=== PATIENT | female | born 1950 | race Caucasian/White ===

== ENCOUNTER 2020-08-26 11:50 | Emergency (ER) | payer MEDICARE, OTHER ==
[~2020-08-26] VITALS: Ht 160 cm; Wt 81.7 kg
[2020-08-26 12:19] LABS: BASOPHILS ABSOLUTE AUTO 0.09 K/mm3 (0.00-0.23); BASOPHILS PERCENT AUTO 0 % (0-2); EOSINOPHILS PERCENT AUTO 0 % (0-6); Hematocrit 41.4 % (33.0-51.0); Hemoglobin 14.2 g/dL (11.5-16.0); IMMATURE GRAN ABSOLUTE AUTO 0.34 K/mm3 (0.00-0.10); IMMATURE GRAN PERCENT AUTO 1 % (0-1); LYMPHOCYTES PERCENT AUTO 3 % (21-46); MONOCYTES PERCENT AUTO 8 % (4-13); Mean Corpuscular HGB 34.1 pg (26.0-34.0); Mean Corpuscular HGB Conc 34.3 g/dL (31.5-36.5); Mean Corpuscular Volume 99 fL (80-100); Mean Platelet Volume 9.5 fL (9.1-12.4); NEUTROPHILS ABSOLUTE AUTO 21.02 K/mm3 (1.96-9.15); NEUTROPHILS PERCENT AUTO 87 % (41-73); Platelet Count 160 K/mm3 (150-400); RDW Coefficient Variation 15.2 % (11.7-14.2); RDW Standard Deviation 55.6 fL (35.1-46.3); Red Blood Cell Count 4.17 M/mm3 (3.80-5.20); White Blood Cell Count 24.05 K/mm3 (4.00-11.30)
[2020-08-26 12:47] LABS: Alanine Aminotransfer (ALT/SGP 31 U/L (12-78); Albumin, Blood 3.2 g/dL (3.4-5.0); Albumin/Globulin Ratio 1.1 (0.8-1.8); Alk Phos 104 U/L (50-136); Anion Gap 5 mmol/L (6-16); Aspartate Aminotrans (AST/SGOT 50 U/L (12-37); Bilirubin, Total 4.4 mg/dL (0.1-1.0); Blood Urea Nitrogen 11 mg/dL (8-24); Bun/Creatinine Ratio 11.5 (12.0-20.0); CO2, Blood 32 mmol/L (21-32); Calcium, Blood 9.5 mg/dL (8.5-10.1); Chloride, Blood 102 mmol/L (98-108); Creatinine, Blood 0.96 mg/dL (0.40-1.00); Globulin, Blood 2.9 g/dL (2.2-4.0); Glomerular Filtration Rate >60 (60-); Glucose, Blood 115 mg/dL (70-99); Potassium, Blood 3.3 mmol/L (3.5-5.5); Sodium, Blood 139 mmol/L (136-145); Total Protein, Blood 6.1 g/dL (6.4-8.2)
[2020-08-26] MEDS ORDERED: Flagyl500 MG PO (18:39)
[2020-08-26] MEDS ORDERED: ONDA4ODT MM (18:39)
[2020-08-26] MEDS ORDERED: Cipro500 MG PO (18:39)
== END 2020-08-26 18:55 | disposition home or self-care (01) ==
LOC: ER 11:50
PROVIDERS: Emergency Medicine
DX: K52.9 Noninfective gastroenteritis and colitis, unspecified (principal); Z88.0 Allergy status to penicillin; Z88.6 Allergy status to analgesic agent
CPT/HCPCS: 74176; 80053; 83605; 83690; 83735; 84145; 85025; 96374; 96375; 99284-25; A9270; J1170; J2405; J7120

== ENCOUNTER 2024-10-30 14:45 | Inpatient (IN) | payer MEDICARE, OTHER ==
[~2024-10-30] VITALS: Ht 162.6 cm; Wt 84.9 kg
[2024-10-30] VITALS (21 sets, daily range): BP systolic 78–106; BP diastolic 44–68
[~2024-10-30 14:45] MED LIST: Cipro500 MG PO; Flagyl500 MG PO; ONDA4ODT MM
[2024-10-30] MEDS ORDERED: NS 1,000 ML IV SCH ×4 (14:55→16:50)
[2024-10-30 14:56] LABS: Calcium, Ionized (POC) 1.20 mmol/L (1.10-1.46); Chloride (POC) 110 mmol/L (98-108); Creatinine (POC) 1.3 mg/dL (0.6-1.0); Glucose (ISTAT POC) 83 mg/dL (70-99); Hematocrit (POC) 32.0 % (36.0-46.0); Hemoglobin (POC) 10.9 g/dL (12.0-16.0); Potassium (POC) 5.2 mmol/L (3.5-5.5); Sodium (POC) 139 mmol/L (135-148); Total CO2 (POC) 21 mmol/L (21-32)
[2024-10-30 15:01] LABS: pH Blood Venous 7.53 (7.34-7.37)
[2024-10-30 15:07] LABS: BASOPHILS ABSOLUTE AUTO 0.04 K/mm3 (0.00-0.23); BASOPHILS PERCENT AUTO 1 % (0-2); EOSINOPHILS ABSOLUTE AUTO 0.06 K/mm3 (0.00-0.68); EOSINOPHILS PERCENT AUTO 1 % (0-6); Hematocrit 31.7 % (33.0-51.0); Hemoglobin 10.7 g/dL (11.5-16.0); IMMATURE GRAN ABSOLUTE AUTO 0.02 K/mm3 (0.00-0.10); IMMATURE GRAN PERCENT AUTO 0 % (0-1); LYMPHOCYTES ABSOLUTE AUTO 2.93 K/mm3 (0.84-5.20); LYMPHOCYTES PERCENT AUTO 59 % (21-46); MONOCYTES ABSOLUTE AUTO 0.34 K/mm3 (0.16-1.47); MONOCYTES PERCENT AUTO 7 % (4-13); Mean Corpuscular HGB Conc 33.8 g/dL (31.5-36.5); Mean Corpuscular Volume 104 fL (80-100); NEUTROPHILS ABSOLUTE AUTO 1.59 K/mm3 (1.96-9.15); NEUTROPHILS PERCENT AUTO 32 % (41-73); NRBC ABSOLUTE 0.02 K/mm3 (0.00-0.02); NRBC Auto 0.4 /100 WBC (0.0-0.2); Platelet Count 157 K/mm3 (150-400); RDW Coefficient Variation 18.1 % (11.7-14.2); RDW Standard Deviation 68.2 fL (35.1-46.3)
[2024-10-30] MEDS ORDERED: Rocuronium Bromide 10 MG/ML 5ML Injection IV ONE ×3 (15:11→19:23)
[2024-10-30] MEDS ORDERED: Etomidate 2MG / ML 10ML Vial IV ONE (15:11)
[2024-10-30 15:40] LABS: Alanine Aminotransfer (ALT/SGP 28.0 U/L (12-78); Albumin, Blood 2.6 g/dL (3.4-5.0); Albumin/Globulin Ratio 0.9 (0.8-1.8); Anion Gap 10.0 mmol/L (3-11); Aspartate Aminotrans (AST/SGOT 55.0 U/L (12-37); Bilirubin, Total 2.0 mg/dL (0.1-1.0); Blood Urea Nitrogen 18.0 mg/dL (8-24); CO2, Blood 22.0 mmol/L (21-32); Calcium, Blood 9.3 mg/dL (8.5-10.1); Chloride, Blood 112.0 mmol/L (98-108); Creatinine, Blood 1.17 mg/dL (0.40-1.00); Globulin, Blood 3.0 g/dL (2.2-4.0); Glucose, Blood 84.0 mg/dL (70-99); Potassium, Blood 5.4 mmol/L (3.5-5.5); Sodium, Blood 139.0 mmol/L (136-145); Total Protein, Blood 5.6 g/dL (6.4-8.2)
[2024-10-30] MEDS ORDERED: PLAVIX75 MG PO (16:57)
[2024-10-30] MEDS ORDERED: ATOR40TA PO (16:57)
[2024-10-30] MEDS ORDERED: ECONAZOLE NITRA30 GM TOP (16:58)
[2024-10-30] MEDS ORDERED: LASIX20 M2 PO (16:58)
[2024-10-30] MEDS ORDERED: GABA300 PO (17:01)
[2024-10-30] MEDS ORDERED: Norco 5-325 Ta1 EACH PO (17:01)
[2024-10-30] MEDS ORDERED: METO50ER PO (17:02)
[2024-10-30] MEDS ORDERED: ROPI.25 PO (17:03)
[2024-10-30] MEDS ORDERED: Revatio20 MG PO (17:03)
[2024-10-30] MEDS ORDERED: TRELEGY ELLIPT1 EACH INH (17:04)
[2024-10-30] MEDS ORDERED: ALDACTONE100 M1 PO (17:04)
[2024-10-30] MEDS ORDERED: TRAM50 PO (17:04)
[2024-10-30] MEDS ORDERED: KOURZEQ5 GM DT (17:05)
[2024-10-30] MEDS ORDERED: XCELLENT A 33000 MCG PO (17:05)
[2024-10-30] MEDS ORDERED: VITAMIN D310 MC4 PO (17:06)
[2024-10-30 18:06] LABS: pH Blood Venous 7.42 (7.34-7.37)
[2024-10-30] MEDS ORDERED: Propofol 10mg/ml 20 ml Vial (Procedural) IV ONE (18:20)
[2024-10-30] MEDS ORDERED: Ketamine HCl 100 MG / ML 5ML Vial XX ONE (19:23)
[2024-10-30] MEDS ORDERED: Phenylephrine HCl 100 MCG/ML-NS 10MLSYR (1MG/10ML) IV ONE (19:23)
[2024-10-30 19:25] LABS: Prothrombin Time Results 14.4 Sec (9.7-11.5)
[2024-10-30] MEDS ORDERED: Albuterol 2.5 MG/3 ML VIAL INH PRN (20:50)
--- NOTE | 2024-10-30 21:25 | NUR ---
ASSUMED CARE IKER PRINGLE FROM ED TRABNSFERED PATIENT TO ICE @2207. PATIENT INTUBATED 7.5 @23CM. PATEINT HAS RIGHT CENTRAL LINE WITH LEVO RUNNING @14MCG. HAS 2 RIGHT FOREARM PERIPHERALIV'S AND LEFT HAND PERIPHERAL AND LEFT FOREARM PERIPHERAL. AT BEDSIDE ALEX.
[2024-10-30 22:34] LABS: Source, Urine Foley catheter
[2024-10-30 22:38] LABS: Glucose Qualitative, Urine Neg (Neg); Ketones, Urine 1+ (Neg); Leukocyte Esterase, Urine 1+ (Neg); Protein, Urine 4+ (Neg); Specific Gravity, Urine 1.025 (1.003-1.022); Urobilinogen, Urine 1+ (Normal)
[2024-10-30 22:47] LABS: Bilirubin, Urine 1+ (Neg); Color, Urine Amber (P-Yellow)
[2024-10-30] MEDS ORDERED: Ipratropium/Albuterol SulF 2.5-0.5MG/3 ML Amp INH PRN (23:40)
[2024-10-30] MEDS ORDERED: CefTRIAXone Sodium 1,000 MG in NS 100 ML IV SCH (23:50)
[2024-10-31] VITALS (105 sets, daily range): BP systolic 67–147; BP diastolic 45–75
[2024-10-31] MEDS ORDERED: Hydrogen Peroxide 1.5 % Solution MT SCH
[2024-10-31] MEDS ORDERED: Vasopressin 20 UNITS in NS 100 ML IV SCH (00:10)
[2024-10-31] MEDS ORDERED: FentaNYL Citrate 50 MCG/ML 2 ML Injection IV PRN (00:15)
--- NOTE | 2024-10-31 00:39 | NUR ---
UPDATE PLACED A RECTAL TUBE DUE TO LARGE AMOUNT OF WILSON LIQUID STOOL.
[2024-10-31] MEDS ORDERED: Midazolam HCL 50 MG in NS 40 ML IV PRN (02:50)
[2024-10-31 05:13] LABS: BASOPHILS ABSOLUTE AUTO 0.03 K/mm3 (0.00-0.23); BASOPHILS PERCENT AUTO 0 % (0-2); EOSINOPHILS ABSOLUTE AUTO 0.25 K/mm3 (0.00-0.68); EOSINOPHILS PERCENT AUTO 3 % (0-6); Hematocrit 33.1 % (33.0-51.0); Hemoglobin 11.5 g/dL (11.5-16.0); IMMATURE GRAN ABSOLUTE AUTO 0.04 K/mm3 (0.00-0.10); IMMATURE GRAN PERCENT AUTO 0 % (0-1); LYMPHOCYTES ABSOLUTE AUTO 0.84 K/mm3 (0.84-5.20); LYMPHOCYTES PERCENT AUTO 9 % (21-46); MONOCYTES ABSOLUTE AUTO 1.46 K/mm3 (0.16-1.47); MONOCYTES PERCENT AUTO 15 % (4-13); Mean Corpuscular HGB Conc 34.7 g/dL (31.5-36.5); Mean Corpuscular Volume 103 fL (80-100); NEUTROPHILS ABSOLUTE AUTO 7.29 K/mm3 (1.96-9.15); NEUTROPHILS PERCENT AUTO 74 % (41-73); NRBC ABSOLUTE 0.02 K/mm3 (0.00-0.02); NRBC Auto 0.2 /100 WBC (0.0-0.2); Platelet Count 122 K/mm3 (150-400); RDW Coefficient Variation 18.6 % (11.7-14.2); RDW Standard Deviation 70.3 fL (35.1-46.3)
--- NOTE | 2024-10-31 05:17 | NUR ---
SHIFT SUMMARY PATIENT CAME TO ICU FROM ED @2101. PATIENT INTUBATED WITH 7.5 ET TUBE @23 CM AT TEETH AND OG TUBE TO INTERMITTENT SUCTION. PATIENT WAS UNRESPONSIVE ON ARRIVAL TO ICU. PATIENT HAS TEMP JONES ARRIVED WITH A TEMP OF 96.3, DECREASED TO 95.9. PUT BEAR HUGGER ON PATIENT WITH BLANKETS, TEMP BREE TO 98.3 THROUGH SHIFT, TURN BEAR HUGGER OFF BUT STILL IN ROOM. HEART RATE HAS BEEN IN THE 60-70'S. PATIENT ON LEVO AND VASO FOR HYPOTENSION SBP IN 90-110'S AND MAPS OF 59-71. PATIENT HAD LARGE AMOUNT OF LIQUID WILSON STOOL AND A RECTAL TUBE WAS PLACED DRAINING TO GRAVITY. HAS RIGHT IJ CENTRAL LINE AND RIGHT FOREARM X2 PERIPHERAL IV'S AND LEFT HAND PERIPHERAL IV AND LEFT FOREARM PERIPHERAL IV. SKIN HAS BEEN BRUISES AND REDDEND AREAS THROUGH BODY PICS IN CHART. HAS KAREN THAT IA PATENT AND DRAINING TO GRAVITY. PATIENT STARTED TO SQUEEZE HANDS WHEN ASKED AND MOVE HEAD BACK AND FORTH ON PILLOW.
[2024-10-31 05:33] LABS: Magnesium, Blood 1.4 mg/dL (1.6-2.4)
[2024-10-31 05:34] LABS: Alanine Aminotransfer (ALT/SGP 36.0 U/L (12-78); Albumin, Blood 2.7 g/dL (3.4-5.0); Albumin/Globulin Ratio 1.0 (0.8-1.8); Anion Gap 12.0 mmol/L (3-11); Aspartate Aminotrans (AST/SGOT 107.0 U/L (12-37); Bilirubin, Total 2.7 mg/dL (0.1-1.0); Blood Urea Nitrogen 24.0 mg/dL (8-24); CO2, Blood 18.0 mmol/L (21-32); Calcium, Blood 8.5 mg/dL (8.5-10.1); Chloride, Blood 116.0 mmol/L (98-108); Creatinine, Blood 1.38 mg/dL (0.40-1.00); Globulin, Blood 2.7 g/dL (2.2-4.0); Glucose, Blood 97.0 mg/dL (70-99); Potassium, Blood 4.1 mmol/L (3.5-5.5); Sodium, Blood 142.0 mmol/L (136-145); Total Protein, Blood 5.4 g/dL (6.4-8.2)
[2024-10-31] MEDS ORDERED: Pantoprazole Sodium 40 MG Injection IV SCH (06:00)
[2024-10-31] MEDS ORDERED: Cetylpyridinium Chloride 1 EA MISC MT SCH (08:00)
[2024-10-31] MEDS ORDERED: Heparin Sodium,Porcine 5,000 UNIT/0.5 ML SDV SC SCH (09:00)
[2024-10-31] MEDS ORDERED: NS 1,000 ML IV SCH (11:20)
--- NOTE | 2024-10-31 14:17 | NUR ---
DISCUSSED CASE WITH BSRN. PATIENT IS LYING IN BED INTUBATED AT THIS TIME. REVIEWED CASE. NO FAMILY AT BEDSIDE AT THIS TIME. WILL PROVIDE SUPPORT TO FAMILY NEEDED.
[2024-10-31 16:34] LABS: Acinetobacter baumannii DNA Not Detected copy/mL (NOT DETECT); Enterobacter cloacae DNA Not Detected copy/mL (NOT DETECT); Escherichia coli DNA Not Detected copy/mL (NOT DETECT); Haemophilus influenzae DNA Not Detected copy/mL (NOT DETECT); Klebsiella aerogenes DNA Not Detected copy/mL (NOT DETECT); Klebsiella oxytoca DNA Not Detected copy/mL (NOT DETECT); Klebsiella pneumoniae DNA Not Detected copy/mL (NOT DETECT); Moraxella catarrhalis DNA Not Detected copy/mL (NOT DETECT); Proteus sp DNA Not Detected copy/mL (NOT DETECT); Pseudomonas aeruginosa DNA Not Detected copy/mL (NOT DETECT); Serratia marcescens DNA Not Detected copy/mL (NOT DETECT); Staphylococcus aureus DNA Detected Bin 10^6 copy/mL (NOT DETECT); Streptococcus agalactiae DNA Not Detected copy/mL (NOT DETECT); Streptococcus pneumoniae DNA Not Detected copy/mL (NOT DETECT)
[2024-10-31 16:35] LABS: Chlamydia pneumonia Not Detected (NOT DETECT); Human Coronavirus RNA Not Detected (NOT DETECT); Streptococcus pyogenes DNA Not Detected copy/mL (NOT DETECT); mecA/C and MREJ Resist Gene Not Detected
[2024-10-31 16:36] LABS: Human Metapneumovirus RNA Not Detected (NOT DETECT); Influenza virus A RNA Not Detected (NOT DETECT); Influenza virus B RNA Not Detected (NOT DETECT); Respiratory syncytial Vir RNA Not Detected (NOT DETECT); Rhinovirus+Enterovirus RNA Not Detected (NOT DETECT)
[2024-11-01] VITALS (74 sets, daily range): BP systolic 99–156; BP diastolic 52–93
[2024-11-01 03:59] LABS: BASOPHILS ABSOLUTE AUTO 0.04 K/mm3 (0.00-0.23); BASOPHILS PERCENT AUTO 0 % (0-2); EOSINOPHILS ABSOLUTE AUTO 0.00 K/mm3 (0.00-0.68); EOSINOPHILS PERCENT AUTO 0 % (0-6); Hematocrit 26.0 % (33.0-51.0); Hemoglobin 9.1 g/dL (11.5-16.0); IMMATURE GRAN ABSOLUTE AUTO 0.05 K/mm3 (0.00-0.10); IMMATURE GRAN PERCENT AUTO 1 % (0-1); LYMPHOCYTES ABSOLUTE AUTO 1.62 K/mm3 (0.84-5.20); LYMPHOCYTES PERCENT AUTO 15 % (21-46); MONOCYTES ABSOLUTE AUTO 1.40 K/mm3 (0.16-1.47); MONOCYTES PERCENT AUTO 13 % (4-13); Mean Corpuscular HGB Conc 35.0 g/dL (31.5-36.5); Mean Corpuscular Volume 102 fL (80-100); NEUTROPHILS ABSOLUTE AUTO 7.87 K/mm3 (1.96-9.15); NEUTROPHILS PERCENT AUTO 72 % (41-73); NRBC ABSOLUTE 0.02 K/mm3 (0.00-0.02); NRBC Auto 0.2 /100 WBC (0.0-0.2); Platelet Count 85 K/mm3 (150-400); RDW Coefficient Variation 19.1 % (11.7-14.2); RDW Standard Deviation 71.6 fL (35.1-46.3)
--- NOTE | 2024-11-01 04:33 | NUR ---
UPDATE 2139 STARTED PROPOFOL 2139 RUNNING @ 10MCG DUE TO PATIENT BEING RESTLESS. PATIENT RUBBING HER RIGHT LEG BACK AND FORTH ON BED CAUSING SKIN TEAR ON INNER LOWER LEG. MEPILEX APPLIED WITH COBAN OVER IT.
--- NOTE | 2024-11-01 04:35 | NUR ---
UPDATE 0330 GIVING PATEINT BED BATH REMOVED PILLOWS FROM SIDE RAIL, PATIENT CONTINUOUSLY RUBBING RIGHT LEG BACK AND FORTH AND PATIENT CAUSED SKIN TEAR ON KNEE AND OUTER LOWER LEG. MEPILEX APPLIED AND BANDAID APPLIED. PADDING APPLIED TO SIDE RAIL. INCREASED PROPOFOL TO 35MCG. CHARGE NURSE AWARE And PICS IN CHART
[2024-11-01 04:42] LABS: Alanine Aminotransfer (ALT/SGP 80.0 U/L (12-78); Albumin, Blood 2.1 g/dL (3.4-5.0); Albumin/Globulin Ratio 0.9 (0.8-1.8); Anion Gap 9.0 mmol/L (3-11); Aspartate Aminotrans (AST/SGOT 289.0 U/L (12-37); Bilirubin, Total 2.0 mg/dL (0.1-1.0); Blood Urea Nitrogen 25.0 mg/dL (8-24); CO2, Blood 19.0 mmol/L (21-32); Calcium, Blood 7.5 mg/dL (8.5-10.1); Chloride, Blood 117.0 mmol/L (98-108); Creatinine, Blood 1.15 mg/dL (0.40-1.00); Globulin, Blood 2.3 g/dL (2.2-4.0); Glucose, Blood 110.0 mg/dL (70-99); Magnesium, Blood 1.2 mg/dL (1.6-2.4); Phosphorus, Blood 2.4 mg/dL (2.5-4.9); Potassium, Blood 3.9 mmol/L (3.5-5.5); Sodium, Blood 141.0 mmol/L (136-145); Total Protein, Blood 4.4 g/dL (6.4-8.2)
[2024-11-01] MEDS ORDERED: Magnesium Sulf 2 GM/Water 50ML 50 ML IV ONE (05:00)
[2024-11-01] MEDS ORDERED: CALCIUM GLUC IN NACL, ISO-OSM 50 ML IV ONE (05:00)
--- NOTE | 2024-11-01 05:44 | NUR ---
SHIFT SUMMARY PATIENT VERY RESTLESS THROUGH SHIFT MOVING BILATERAL LEGS RUBBING THEM ON BED CAUSING MULTIPLE SKIN TEARS (SEE PREVIOUS NOTES). PATIENT MOVES HEAD FROM SIDE TO SIDE AND LIFTS BILATERAL SHOUDLERS UP AND DOWN. HAS ET TUBE 7.5 23@ TEETH VENT SETTINGS AC/VC 14/400/5/30%. HEARTRATE 70-80'S AND SBP 110-120'S AND MAPS IN THE 70'S. PATIENT HAS JONES IT IS PATENT AND DRAINING TO GRAVITY. HAS A RECTAL TUBE DRAINING TO GRAVITY. PATIENT HAS PICC LINE IN LEFT UPPER ARM. PERIPHERAL IV'S IN RIGHT FORARM AND LEFT HAND AND FOREARM. LEVOPHED RUNNING @ 8MCG, PROPOFOL RUNNING @ 35MCG, AND LR RUNNING @ 100MLS. PATIENT SKIN HAS MULTIPLE BRUISES AND RED AREA THROUGH OUT BODY, PICS IN CHART. PATIENT IN SOFT WRIST BILATERAL RESTRAINTS AND CALL WITHIN REACH.
[2024-11-01] MEDS ORDERED: Vancomycin (Pharmacy Consult) IV SCH (08:50)
[2024-11-01] MEDS ORDERED: FIBER PT SCH (10:45)
[2024-11-01] MEDS ORDERED: BANANA FLAKES PT SCH (10:45)
[2024-11-01] MEDS ORDERED: Magnesium Hydroxide Conc 10 ML UDC PT PRN (10:45)
[2024-11-01] MEDS ORDERED: Docusate Sodium Liquid 100 MG UDC PT PRN (10:45)
[2024-11-01] MEDS ORDERED: [UNRECOGNIZED DRUG - OTHER] PT SCH (10:45)
[2024-11-01] MEDS ORDERED: Magnesium Sulf 2 GM/Water 50ML 50 ML IV SCH (13:00)
--- NOTE | 2024-11-01 18:39 | NUR ---
ALL DRIPS AND FLUIDS ARE NOW OFF. md DOESN'T WANT O GIVE PAIN OR SEDATION MEDS TO SEE IF PT WILL CLEAR WHAT SHE HAS ALREADY GOTTEN AND WAKE UP. STARTED 4 POINT SOFT RESTRAINTS TO KEEP PT SAFE FROM INJURING HERSELF.
[2024-11-01] MEDS ORDERED: FentaNYL Citrate 50 MCG/ML 2 ML Injection IV PRN (21:00)
--- NOTE | 2024-11-01 21:13 | NUR ---
UPDATE REMOVED ONE OF THE RIGHT FOREARM PERIPHERAL IV, TIP INTACT, PATIENT TOLERATED WELL.
[2024-11-02] VITALS (77 sets, daily range): BP systolic 89–158; BP diastolic 49–89
[2024-11-02 03:17] LABS: BASOPHILS ABSOLUTE AUTO 0.03 K/mm3 (0.00-0.23); BASOPHILS PERCENT AUTO 0 % (0-2); EOSINOPHILS ABSOLUTE AUTO 0.02 K/mm3 (0.00-0.68); EOSINOPHILS PERCENT AUTO 0 % (0-6); Hematocrit 21.8 % (33.0-51.0); Hemoglobin 7.6 g/dL (11.5-16.0); IMMATURE GRAN ABSOLUTE AUTO 0.05 K/mm3 (0.00-0.10); IMMATURE GRAN PERCENT AUTO 1 % (0-1); LYMPHOCYTES ABSOLUTE AUTO 0.82 K/mm3 (0.84-5.20); LYMPHOCYTES PERCENT AUTO 11 % (21-46); MONOCYTES ABSOLUTE AUTO 0.73 K/mm3 (0.16-1.47); MONOCYTES PERCENT AUTO 10 % (4-13); Mean Corpuscular HGB Conc 34.9 g/dL (31.5-36.5); Mean Corpuscular Volume 103 fL (80-100); NEUTROPHILS ABSOLUTE AUTO 5.80 K/mm3 (1.96-9.15); NEUTROPHILS PERCENT AUTO 78 % (41-73); NRBC ABSOLUTE 0.00 K/mm3 (0.00-0.02); NRBC Auto 0.0 /100 WBC (0.0-0.2); Platelet Count 56 K/mm3 (150-400); RDW Coefficient Variation 18.8 % (11.7-14.2); RDW Standard Deviation 70.8 fL (35.1-46.3)
--- NOTE | 2024-11-02 03:57 | NUR ---
UPDATE HEMOGLOBIN 7.[address] BELLA MADE AWARE AND NEW ORDER ADDED FOR A H&H @0800 FOR RECHECK.
--- NOTE | 2024-11-02 04:57 | NUR ---
UPDATE BEAR HUGGER PLACE ON HIGH WITH LOW FAN ON PATIENT FOR A TEMP OF 95.9.
--- NOTE | 2024-11-02 05:44 | NUR ---
SHIFT SUMMARY PATIENT THRASHING IN BED AT BEGINING OF SHIFT. NURSE CALLED DR. NGUYEN AND ASKED TO GIVE PATIENT SOME PROPOFOL. STARTED PROPOFOL @20MCG UP IT TO 40MCG. PATIENT STILL NOT TOLERATING THE VENT AND THRASHING AROUND IN BED. NURSE CALLED DR. NGUYEN BACK AND GOT NEW ORDERS FOR PRECEDEX. STARTED PRECEDEX @ 0.3MCG (2200) PATIENT SETTLED DOWN AND NURSE WAS ABLE TO SLOWING TURN DOWN PROPFOL AND PRECEDEX. PROPOFOL TURNED OFF @ 0400 AN DPRCEDEX TURN DOWN TO 0.2MCG @0240. PATIENT DOES NOT FOLLOW COMMANDS OR RESPOND TO VERBAL. PATIENT DOES RESPOND TO PAIN. TEMP 99.0 AT BEGINING OF SHIFT BUT DOWN TO 95.9 AFTER BEDBATH BEAR HUGGER APPLIED. HR IN THE 60'S AND SBP 120'S AND MAP 70-80'S. PATIENT HAS ET TUBE 7.5 @23CM AT TEETH AC/VC 14/400/8/30%. TUBE FEEDING RUNNING @ GOAL 40MLS/HR WITH A FLUSH OF 30ML Q 4HRS. PATIENT HAS PICC LINE IN LEFT UPPER ARM. JONES PATENT AND DRAINING TO GRAVITY. HAD ZERO OUTPUT DURING SHIFT IN RECTAL TUBE. PATIENT HAS MANY BRUISES. SWEELING IN BILATERAL ARMS AND REDDNESS THROUGH OUT BODY, PICS IN CHART.PATIENT IN FOUR POINT SOFT RESTRAINTS BUE AND BLE. CALL LIGHT WITHIN REACH.
[2024-11-02 08:00] LABS: Anion Gap 12.0 mmol/L (3-11); Blood Urea Nitrogen 25.0 mg/dL (8-24); CO2, Blood 22.0 mmol/L (21-32); Calcium, Blood 7.9 mg/dL (8.5-10.1); Chloride, Blood 112.0 mmol/L (98-108); Creatinine, Blood 1.0 mg/dL (0.40-1.00); Glucose, Blood 131.0 mg/dL (70-99); Magnesium, Blood 2.0 mg/dL (1.6-2.4); Phosphorus, Blood 1.8 mg/dL (2.5-4.9); Potassium, Blood 3.7 mmol/L (3.5-5.5); Sodium, Blood 142.0 mmol/L (136-145)
[2024-11-02 08:31] LABS: Hematocrit 23.6 % (33.0-51.0); Hemoglobin 8.0 g/dL (11.5-16.0)
[2024-11-02 08:55] LABS: BASOPHILS ABSOLUTE AUTO 0.03 K/mm3 (0.00-0.23); BASOPHILS PERCENT AUTO 0 % (0-2); EOSINOPHILS ABSOLUTE AUTO 0.05 K/mm3 (0.00-0.68); EOSINOPHILS PERCENT AUTO 1 % (0-6); IMMATURE GRAN ABSOLUTE AUTO 0.06 K/mm3 (0.00-0.10); IMMATURE GRAN PERCENT AUTO 1 % (0-1); LYMPHOCYTES ABSOLUTE AUTO 0.95 K/mm3 (0.84-5.20); LYMPHOCYTES PERCENT AUTO 13 % (21-46); MONOCYTES ABSOLUTE AUTO 0.57 K/mm3 (0.16-1.47); MONOCYTES PERCENT AUTO 8 % (4-13); Mean Corpuscular HGB Conc 34.5 g/dL (31.5-36.5); Mean Corpuscular Volume 102 fL (80-100); NEUTROPHILS ABSOLUTE AUTO 5.74 K/mm3 (1.96-9.15); NEUTROPHILS PERCENT AUTO 78 % (41-73); NRBC ABSOLUTE 0.00 K/mm3 (0.00-0.02); NRBC Auto 0.0 /100 WBC (0.0-0.2); Platelet Count 61 K/mm3 (150-400); RDW Coefficient Variation 18.9 % (11.7-14.2); RDW Standard Deviation 70.1 fL (35.1-46.3)
[2024-11-02] MEDS ORDERED: Potassium Phos/Sodium Phos 250 MG PACK PO SCH (09:00)
[2024-11-02] MEDS ORDERED: Ipratropium/Albuterol SulF 2.5-0.5MG/3 ML Amp INH SCH (09:50)
[2024-11-02 10:23] LABS: Alanine Aminotransfer (ALT/SGP 113.0 U/L (12-78); Albumin, Blood 2.0 g/dL (3.4-5.0); Albumin/Globulin Ratio 0.8 (0.8-1.8); Anion Gap 11.0 mmol/L (3-11); Aspartate Aminotrans (AST/SGOT 359.0 U/L (12-37); Bilirubin, Total 2.4 mg/dL (0.1-1.0); Blood Urea Nitrogen 26.0 mg/dL (8-24); CO2, Blood 23.0 mmol/L (21-32); Calcium, Blood 8.1 mg/dL (8.5-10.1); Chloride, Blood 113.0 mmol/L (98-108); Creatinine, Blood 1.05 mg/dL (0.40-1.00); Globulin, Blood 2.4 g/dL (2.2-4.0); Glucose, Blood 121.0 mg/dL (70-99); Potassium, Blood 3.8 mmol/L (3.5-5.5); Sodium, Blood 143.0 mmol/L (136-145); Total Protein, Blood 4.4 g/dL (6.4-8.2)
--- NOTE | 2024-11-02 10:40 | NUR ---
AM NOTE: THIS RN ASSUMED CARE OF PT AT APPROX 0700, BEDSIDE REPORT FROM NOC RN. PT INTUBATED & SEDATED THIS AM. RASS -4, PRECEDEX GTT INFUSING AT 0.2MCG/KG/HR AT START OF SHIFT; PRECEDEX OFF AT 0800. PT UNABLE TO FOLLOW COMMANDS BUT IS RESPONSIVE TO PHYSICAL STIMULI. PUPILS EQUAL & REACTIVE TO LIGHT, CORNEAL REFLEX INTACT BILATERALLY. MOVING ALL EXTREMITIES. OPENING EYES AT TIMES, DOWNWARD GAZE NOTED. HR 60'S, SINUS RHYTHM ON MONITOR. SBP 110-130'S, MAP >65. SPO2 >90% ON VENT; AC/VC 14/400/8/30%. FENTANYL PRN FOR PAIN. JONES CATH IN PLACE, DRAINING MINIMAL INDERJIT URINE TO GRAVITY. RECTAL TUBE IN PLACE DRAINING LIQUID STOOL - VERY MINIMAL OUTPUT. OGT IN PLACE W/ TF INFUSING AT GOAL. PT'S SPOUSE AT BEDSIDE AT THIS TIME. BILAT SWR IN PLACE FOR PT SAFETY.
[2024-11-02 12:28] LABS: D-Dimer, Quantitative 3.34 mg/L FEU (0.00-0.52); Prothrombin Time Results 12.4 Sec (9.7-11.5)
[2024-11-02 12:50] LABS: Fibrinogen 295.0 mg/dL (170-430)
--- NOTE | 2024-11-02 17:35 | NUR ---
END OF SHIFT NOTE: PT REMAINS INTUBATED, OFF SEDATION SINCE APPROX 0800. RASS -3. PT NOT FOLLOWING COMMANDS OR RESPONSIVE TO VERBAL STIMULI. OPENS EYES AT TIMES, MOVES ALL EXTREMITIES, ATTEMPTS TO SIT FORWARD. PUPILS REMAIN EQUAL & REACTIVE TO LIGHT W/ CORNEAL REFLEX PRESENT BILATERALLY. COUGH & GAG PRESENT. EEG TAKING PLACE AT THIS TIME. HR 60-90'S, SINUS RHYTHM ON MONITOR. BP STABLE, MAP >65. SPO2 >90% ON VENT. SETTINGS AC/VC 14/400/8/30%. SMALL-MODERATE THICK YELLOW SPUTUM W/ INLINE SUCTION. TEMP LOW 95.9, NORMOTHERMIC AT THIS TIME W/ CORE TEMP 96.9. JONES CATH IN PLACE W/ MINIMAL INDERJIT URINE OUTPUT; 133ML OUTPUT THIS SHIFT. RECTAL TUBE REMOVED, NO BM'S. OGT INFUSING AT GOAL RATE. EXTENSIVE BRUISING NOTED T/O. Q2HR REPOSITIONING. PT'S SPOUSE AT BEDSIDE INTERMITTENTLY THROUGHOUT THE DAY.
[2024-11-02] MEDS ORDERED: CefTRIAXone Sodium 2,000 MG in NS 100 ML IV SCH (21:00)
[2024-11-03] VITALS (89 sets, daily range): BP systolic 109–162; BP diastolic 51–85
[2024-11-03 05:22] LABS: BASOPHILS ABSOLUTE AUTO 0.03 K/mm3 (0.00-0.23); BASOPHILS PERCENT AUTO 0 % (0-2); EOSINOPHILS ABSOLUTE AUTO 0.13 K/mm3 (0.00-0.68); EOSINOPHILS PERCENT AUTO 2 % (0-6); Hematocrit 22.8 % (33.0-51.0); Hemoglobin 8.0 g/dL (11.5-16.0); IMMATURE GRAN ABSOLUTE AUTO 0.21 K/mm3 (0.00-0.10); IMMATURE GRAN PERCENT AUTO 3 % (0-1); LYMPHOCYTES ABSOLUTE AUTO 0.70 K/mm3 (0.84-5.20); LYMPHOCYTES PERCENT AUTO 10 % (21-46); MONOCYTES ABSOLUTE AUTO 0.84 K/mm3 (0.16-1.47); MONOCYTES PERCENT AUTO 12 % (4-13); Mean Corpuscular HGB Conc 35.1 g/dL (31.5-36.5); Mean Corpuscular Volume 102 fL (80-100); NEUTROPHILS ABSOLUTE AUTO 5.01 K/mm3 (1.96-9.15); NEUTROPHILS PERCENT AUTO 73 % (41-73); NRBC ABSOLUTE 0.04 K/mm3 (0.00-0.02); NRBC Auto 0.6 /100 WBC (0.0-0.2); Platelet Count 73 K/mm3 (150-400); RDW Coefficient Variation 18.5 % (11.7-14.2); RDW Standard Deviation 67.8 fL (35.1-46.3)
[2024-11-03 05:49] LABS: Alanine Aminotransfer (ALT/SGP 109.0 U/L (12-78); Albumin, Blood 2.0 g/dL (3.4-5.0); Albumin/Globulin Ratio 0.8 (0.8-1.8); Anion Gap 8.0 mmol/L (3-11); Aspartate Aminotrans (AST/SGOT 357.0 U/L (12-37); Bilirubin, Total 2.0 mg/dL (0.1-1.0); Blood Urea Nitrogen 23.0 mg/dL (8-24); CO2, Blood 22.0 mmol/L (21-32); Calcium, Blood 7.7 mg/dL (8.5-10.1); Chloride, Blood 116.0 mmol/L (98-108); Creatinine, Blood 0.86 mg/dL (0.40-1.00); Globulin, Blood 2.6 g/dL (2.2-4.0); Glucose, Blood 114.0 mg/dL (70-99); Magnesium, Blood 1.9 mg/dL (1.6-2.4); Phosphorus, Blood 1.0 mg/dL (2.5-4.9); Potassium, Blood 3.9 mmol/L (3.5-5.5); Sodium, Blood 142.0 mmol/L (136-145); Total Protein, Blood 4.6 g/dL (6.4-8.2)
[2024-11-03] MEDS ORDERED: Potassium Phosphate Dibasic 30 MM in Dextrose 5% 500 ML IV ONE (06:05)
--- NOTE | 2024-11-03 06:34 | NUR ---
SHIFT SUMMARY PT STILL NOT FOLLOWING COMMANDS, BECAME RESTLESS, TRYING TO SIT UP IN BED AFTER EEG TEST COMPLETED. DR TURNRE UPDATED AND ORDER RECEIVED TO RESTART PROPOFOL WHICH IS AT 30MCG. FENTANYL GIVEN PRN FOR PAIN CONTROL WITH GOOD RESULT. DR TURNER UPDATED WITH LAB RESULTS AND ORDERS PENDING. WILL UPDATE DAY RN WITH OUTSTANDING ISSUES AND PROBLEMS TO DATE. VSS AT THIS TIME.
[2024-11-03] MEDS ORDERED: Furosemide 10 MG / ML 2ML Vial IV ONE (08:15)
[2024-11-03] MEDS ORDERED: FentaNYL Citrate 50 MCG/ML 2 ML Injection IV PRN (10:40)
--- NOTE | 2024-11-03 11:09 | NUR ---
Spiritual Care | Nurse Request Pt. is being re-intubated, and this cad engineer was re-directed to the hallway where the spouse was sitting. Facilitated introductions and a fairly lengthy life review. Listen with empathy and calming presence. Jairo verbalized that he consideres himself "spiritual" but that the Pt. doesn't. Over the course of life review a measure of rapport is established with the spouse. Spouse displays evidence of trust and engagement. When re-intubation was complpete this cad engineer walked the spouse back into the pts. room. Spouse verbalized gratitude for the spiritual care visit, and welcomed [facility] cad engineer to visit again.
[2024-11-03 11:28] LABS: pH Blood Venous 7.32 (7.34-7.37)
--- NOTE | 2024-11-03 11:32 | NUR ---
AM NOTE PT MINIMALLY RESPONSIVE AND INTUBATED ON VENT AT TIME OF BEDSIDE REPORT. NEURO: WITHDRAWS TO PAINFUL STIMULI, UNABLE TO FOLLOW COMMANDS OR TRACK EYE MOVEMENTS. RESP: INTUBATED ON VENT, LUNG SOUNDS DIM T/O. VENT SETTINGS ACVC 14/400/8/30, ETT 7.5 AND 23 AT THE TEETH. MODERATE THICK WILSON SECRETIONS FROM INLINE SXN. CARDIAC: MAPS> 65, HR 80'S. EXTREMITY EDEMA +2, GENERALIZED EDEMA +1. CAP REFILL <3 SECS. GI: OG IN PLACE 65 AT TEETH, TF RUNNING AT GOAL OF 40ML/HR. : TEMP JONES IN PLACE DRAINING DARK YELLOW URINE TO GRAVITY. SKIN W/ SCATTERED ECCYMOSIS AND SKIN TEARS TO EXTREMETIES, TRUNK, AND FACE. ACCESS: LUE TRIPLE LUMEN PICC GTTS: PROP 30
--- NOTE | 2024-11-03 11:39 | NUR ---
EXTUBATION AND RSI PT WAS PLACED ON SBT W/ SPOTANEOUS SETTINGS 10/7 30% . SEDATION WAS PAUSED FOR THIS SBT. PT WAS SPONTANEOUSLY MOVING ALL EXTREMETIES BUT UNABLE TO FOLLOW COMMANDS. AFTER 1 HOUR OF SPONTANEOUS VENT SETTINGS, PT MAINTAINED FIO2 SATS >95% AND RESPIRATIONS REMAINED IN 30'S. JOHNNY AT BEDSIDE AND ORDERED EXTUBATION. PT EXTUBATED TO 4LPM NC. 10 MINUTE TIMELINE GIVEN FOR PATIENT TO RECOVER MEANINGFULLY BEFORE REINTUBATION. PT RESPIRATIONS INCREASED TO 40'S, HR 110'S, FIO2 SATS >90%, AND STILL UNABLE TO FOLLOW COMAMNDS. RSI INITIATED. 1017 50MCG FENTANYL ADMINISTERED IV. VS 156/86 NIBP, 114 HR, 92% FIO2, 40 RR. 1020 SOFT BUE RESTRAINTS APPLIED. 1020 20MG ETOMIDATE ADMINISTERED IV. VS 158/50 NIBP, 112 HR, 95% FIO2, 34 RR 1021 ETT 7.5 PLACED 26 AT TEETH, W/ POSITIVE BREATH SOUNDS W/ AMBUBAG 1025 PROPOFOL RESTARTED AT 30MCG/KG/MIN 1030 OG PLACED 65 AT TEETH CXR ORDERED TO VERIFY TUBE PLACEMENTS. JOHNNY CONFIRMED OG PLACEMENT AND ADVISED ETT TO BE PULLED BACK TO 24CM. RT ADJUSTED DIRECTED.
[2024-11-03] MEDS ORDERED: Heparin Sodium,Porcine 5,000 UNIT/0.5 ML SDV SC SCH (16:00)
--- NOTE | 2024-11-03 17:46 | NUR ---
PM NOTE ASSESSMENT REMIANS UNCHANGED FROM AM NOTE. VENT SETTINGS REMAIN ACVC 18/400/7/35, TOLERATING WELL. ONE DOSE OF PRN FENTANYL GIVEN PER CPOT SCORE. ACCESS: LUE TRIPLE LUMEN PICC GTTS: PROP @ 30, LR @50
--- NOTE | 2024-11-03 19:00 | NUR ---
ASSUMPTION OF CARE BEDSIDE REPORT RECEIVED FROM DAY RN. REVIEWED ALL OUTSTANDING ISSUES AND PROBLEMS TO DATE. PT STILL NOT FOLLOWING COMMANDS, BUT JEAN SPONT AND WITH STIMULATION. VSS AT THIS TIME. WILL CONTINUE TO MONITOR.
[2024-11-04] VITALS (90 sets, daily range): BP systolic 101–146; BP diastolic 55–84
[2024-11-04 05:15] LABS: BASOPHILS ABSOLUTE AUTO 0.05 K/mm3 (0.00-0.23); BASOPHILS PERCENT AUTO 1 % (0-2); EOSINOPHILS ABSOLUTE AUTO 0.32 K/mm3 (0.00-0.68); EOSINOPHILS PERCENT AUTO 4 % (0-6); Hematocrit 23.6 % (33.0-51.0); Hemoglobin 8.4 g/dL (11.5-16.0); IMMATURE GRAN ABSOLUTE AUTO 0.31 K/mm3 (0.00-0.10); IMMATURE GRAN PERCENT AUTO 4 % (0-1); LYMPHOCYTES ABSOLUTE AUTO 0.83 K/mm3 (0.84-5.20); LYMPHOCYTES PERCENT AUTO 10 % (21-46); MONOCYTES ABSOLUTE AUTO 1.12 K/mm3 (0.16-1.47); MONOCYTES PERCENT AUTO 14 % (4-13); Mean Corpuscular HGB Conc 35.6 g/dL (31.5-36.5); Mean Corpuscular Volume 100 fL (80-100); NEUTROPHILS ABSOLUTE AUTO 5.38 K/mm3 (1.96-9.15); NEUTROPHILS PERCENT AUTO 67 % (41-73); NRBC ABSOLUTE 0.07 K/mm3 (0.00-0.02); NRBC Auto 0.9 /100 WBC (0.0-0.2); Platelet Count 89 K/mm3 (150-400); RDW Coefficient Variation 18.3 % (11.7-14.2); RDW Standard Deviation 66.6 fL (35.1-46.3)
[2024-11-04 05:44] LABS: Alanine Aminotransfer (ALT/SGP 107.0 U/L (12-78); Albumin, Blood 2.2 g/dL (3.4-5.0); Albumin/Globulin Ratio 0.8 (0.8-1.8); Anion Gap 9.0 mmol/L (3-11); Aspartate Aminotrans (AST/SGOT 330.0 U/L (12-37); Bilirubin, Total 2.2 mg/dL (0.1-1.0); Blood Urea Nitrogen 23.0 mg/dL (8-24); CO2, Blood 24.0 mmol/L (21-32); Calcium, Blood 7.8 mg/dL (8.5-10.1); Chloride, Blood 112.0 mmol/L (98-108); Creatinine, Blood 0.81 mg/dL (0.40-1.00); Globulin, Blood 2.8 g/dL (2.2-4.0); Glucose, Blood 107.0 mg/dL (70-99); Magnesium, Blood 1.7 mg/dL (1.6-2.4); Phosphorus, Blood 2.1 mg/dL (2.5-4.9); Potassium, Blood 3.7 mmol/L (3.5-5.5); Sodium, Blood 141.0 mmol/L (136-145); Total Protein, Blood 5.0 g/dL (6.4-8.2)
--- NOTE | 2024-11-04 06:02 | NUR ---
NOTIFY DR SCHILLING UPDATED WITH LAB RESULTS, PHOS 2.1, ORDER RECEIVED FOR REPLACEMENT.
[2024-11-04] MEDS ORDERED: Potassium Phosphate Dibasic 20 MM in Dextrose 5% 500 ML IV ONE (06:05)
--- NOTE | 2024-11-04 06:09 | NUR ---
SHIFT SUMMARY PT CONTINUES TO NOT FOLLOW COMMANDS, BUT JEAN SPONT AND WITH STIMULATION. PROPOFOL GTT CONT AT 30MCG WITH MULT FENTANYL PUSHES REQUIRED, TACHYPNIC AT TIMES, OVER BREATHING VENT, RESTLESS. FEBRILE THIS AM, T MAX 100.2. BLANKETS REMOVED AND FAN PUT NEXT TO PT, TEMP DOWN NOW TO 99.8. PHOS 2.1, ORDER RECEIVED FOR REPLACEMENT AND IS PENDING. WILL UPDATE DAY RN WITH ALL OUTSTANDING ISSUES AND PROBLEMS TO DATE.
[2024-11-04] MEDS ORDERED: Mag Sulfate 1 GM/D5% 100ML 100 ML IV STA (08:16)
--- NOTE | 2024-11-04 11:16 | NUR ---
AM NOTE PT INTUBATED ON VENT/SEDATED AT TME OF BEDSIDE REPORT W/ NOC RN. NEURO: UNABLE TO FOLLOW COMMANDS, MOVES LOWER EXTREMITIES SPONTANEOUSLY. PT GENERALLY PAINFUL LOOKING, MEDICATED PER MAR. CARDIAC: NSR W/ MAPS >65, EDEMA IN BUE +2/+3. CAP REFILL<3 SEC. RESPIRATORY: VENT SETTINGS ACVC 18/400/7/35, ETT 7.5 MEASURING 24 AT TEETH. LUNG SOUNDS DIM T/O. GI: JONES CATHETER IN PLACE AND DRAINING TO GRAVITY. : OG IN PLACE 65 AT TEETH, TF PIVOT 1.5 AT GOAL OF 40ML/HR. RECTAL TUBE PLACED THIS AM FOR FREQUENT/LIQUID STOOLS AND SKIN PROTECTION. SKIN W/ SCATTERED BRUSING AND BREAKDOWN. ACCESS: LUE TRIPLE LUMEN PICC GTTS: PROP 30, LR 50
--- NOTE | 2024-11-04 13:28 | NUR ---
CASE CONFERENCE MET WITH PT'S S/O EMILE YESTERDAY AFTERNOON. HE VERBALIZED CONCERN THAT PT HAS NOT MADE ANY SIGNIFICANT PROGRESS. WE HAD A DISCUSSION ABOUT WHAT HAPPENS IF A PATIENT ISN'T ABLE TO BE WEANED FROM INTUBATION. HE WAS TEARFUL, AND STATES HE KNOWS SHE WOULD NEVER WANT A TRACH AND/OR PEG. WE ALSO DISCUSSED COMFORT CARE, THAT IS ALSO A POSSIBILITY. PLAN TO TALK WITH EMILE AGAIN TODAY OR TOMORROW. PT HAS NOT MADE ANY FURTHER PROGRESS OVER THE PAST 24 HOURS.
--- NOTE | 2024-11-04 19:05 | NUR ---
PM NOTE PT ASSESSMENT UNCHANGED FROM AM NOTE W/ EXCEPTION OF NEW WOUND ON UPPER LIP. PRESSURE ULCER/SKIN TEARS FOUND UNDER ETT BRIAN, BRIAN MOVED TO BOTTOM LIP TO PREVENT FURTHER INJURY. HYDROGEL APPLIED TO AREA, NONSTICK AND TAPE APPLIED LIGHTLY TO MAINTAIN MOISTURE. DR. THOMPSON NOTIFIED OF WOUND. ACCESS: LUE TRIPLE LUMEN PICC GTTS: PROP 20, LR 100
[2024-11-04 21:45] LABS: HAPTOGLOBIN 23 mg/dL (30-200)
[2024-11-05] VITALS (93 sets, daily range): BP systolic 94–138; BP diastolic 44–81
[2024-11-05 04:41] LABS: Hematocrit 22.1 % (33.0-51.0); Hemoglobin 7.7 g/dL (11.5-16.0); Mean Corpuscular HGB Conc 34.8 g/dL (31.5-36.5); Mean Corpuscular Volume 102 fL (80-100); NRBC ABSOLUTE 0.03 K/mm3 (0.00-0.02); NRBC Auto 0.2 /100 WBC (0.0-0.2); Platelet Count 83 K/mm3 (150-400); RDW Coefficient Variation 18.1 % (11.7-14.2); RDW Standard Deviation 65.7 fL (35.1-46.3)
[2024-11-05 05:05] LABS: Albumin, Blood 1.8 g/dL (3.4-5.0); Anion Gap 9 mmol/L (3-11); Blood Urea Nitrogen 23 mg/dL (8-24); CO2, Blood 23 mmol/L (21-32); Calcium, Blood 7.8 mg/dL (8.5-10.1); Chloride, Blood 112 mmol/L (98-108); Creatinine, Blood 0.76 mg/dL (0.40-1.00); Glucose, Blood 101 mg/dL (70-99); Magnesium, Blood 1.8 mg/dL (1.6-2.4); Phosphorus, Blood 2.5 mg/dL (2.5-4.9); Potassium, Blood 3.9 mmol/L (3.5-5.5); Sodium, Blood 140 mmol/L (136-145)
[2024-11-05 05:20] LABS: BAND PERCENT MAN 14 % (0-8); BASOPHILS ABSOLUTE MAN 0.00 K/mm3 (0.00-0.23); BASOPHILS PERCENT MAN 0 % (0-2); EOSINOPHILS ABSOLUTE MAN 0.24 K/mm3 (0.00-0.68); EOSINOPHILS PERCENT MAN 2 % (0-6); LYMPHOCYTES ABSOLUTE MAN 0.97 K/mm3 (0.84-5.20); LYMPHOCYTES PERCENT MAN 8 % (21-46); MONOCYTES ABSOLUTE MAN 0.73 K/mm3 (0.16-1.47); MONOCYTES PERCENT MAN 6 % (4-13); MYELOCYTE ABSOLUTE MAN 0.12 K/mm3 (0.00-0.00); MYELOCYTE PERCENT MAN 1 % (0-0); NEUTROPHILS ABSOLUTE MAN 10.15 K/mm3 (1.96-9.15); SEG NEUTROPHILS PERCENT MAN 69 % (41-73)
--- NOTE | 2024-11-05 06:35 | NUR ---
SHIFT SUMMARY PT REMAINS SEDATED ON VENT, NOT FOLLOWING COMMANDS BUT WITHDRAWING TO PAIN AND OCCAS BLE SPONT MOVEMENT. PROP INCREASED TO 25 MCG DUE TO RESTLESSNESS, TACHYPNEA AND INCREASED HR AT TIMES. FENTANYL PUSHES GIVEN PRN FOR PAIN CONTROL. CONTINUES WITH LIQUID STOOL FROM LACTULOSE, RECTAL TUBE IN PLACE AND DRAINING TO GRAVITY. U.O. APPROX 500 CC FOR SHIFT AND REMAINS DARK INDERJIT. IVF CONTINUED AT 100ML/HR. VSS AT THIS TIME. WILL UPDATE DAY RN WITH ALL OUTSTANDING ISSUES AND PROBLEMS TO DATE.
[2024-11-05] MEDS ORDERED: Furosemide 10 MG / ML 2ML Vial IV ONE (17:15)
--- NOTE | 2024-11-05 19:32 | NUR ---
SHIFT SUMMARY: NEURO: SPONTANEOUS MOVEMENT NOTED IN BLE. PATIENT WITHDRAWS ALL EXTREMITIES WITH PAINFUL STIMULI. CORNEAL REFLEX NOTED. IN THE AM, PATIENT HAD A STRONG GAZES DOWNWARDS AND TO THE LEFT. BY THE AFTERNOON, PATIENT HAD A RELAXED, NEUTRAL GAZE. NO TRACKING NOTED. DURING SEDATION INTERRUPTION, (ABOUT 2.5 HOURS), PATIENT OPENED EYES INDEPENDENTLY. PATIENT REQUIRED PRN FENTANYL ABOUT EVERY 2 HOURS. RESPIRATORY: PATIENT HAS WILSON/PINK THICK SPUTUM FROM ETT. VENT SETTINGS AT THE END OF SHIFT 18/400/7/35%. SPO2 >90%. PATIENT TOLERATED VENT WITH A COMBINATION OF PROPOFOL AT 10 MCG/KG/MIN AND PRN FENTANYL. PATIENT DID CLAMP DOWN ON THE ETT TWICE. BOTH TIMES, PATIENT WAS ABLE TO MAINTAIN VOLUMES AND SPO2. EACH TIME, PATIENT RELAXED JAW AND ALLOWED RT TO ADJUST THE BITE BLOCK. CARDIAC: PATIENT'S BP STABLE WITH SBP IN THE 100S-130S. MAPS >65. HR IN THE 90S-100S. STRONG PALPABLE RADIAL AND PEDIS PULSES. WEEPING EDEMA IN LEFT UPPER EXTREMITY. BUE ELEVATED THROUGHOUT THE SHIFT. GI: URINE OUTPUT ABOUT 30 ML/HR DURING THE SHIFT. DISCUSSED WITH DR. TURNER. NEW ORDERS FOR FUROSEMIDE AND ALBUMIN. PATIENT RESPONDED WELL WITH IMPROVEMENTS IN THE COLOR AND AMOUNT OF URINE. JONES IN PLACE AND DRAINING FREELY. : RECTAL TUBE IN PLACE WITH YELLOW LIQUID URINE. TUBE FEED PIVOT 1.5 CONTINUES AT GOAL OF 40 ML/HR. PSYCHSOCIAL: PATIENT'S SIGNIFICANT OTHER AT BEDSIDE DURING THE SHIFT. HE REPORTED THAT THE PATIENT'S BROTHER WILL BE IN TOWN TO VISIT THE PATIENT THIS COMING FRIDAY. OTHER VISITORS AT BEDSIDE. THEY ARE CALM AND ENCOURAGING OF THE PATIENT.
--- NOTE | 2024-11-05 21:00 | NUR ---
ASSUMPTION OF CARE CARE OF PT ASSUMED FOLLOWING BEDSIDE SHIFT REPORT FROM DAY RN. PT VENTILATED AND SEDATED ON PROPOFOL 10. DURING ASSESSMENT PT NODDED NO TO QUESTION, OTHERIWSE NO PURPOSEFUL MOVEMENTS. LEFT GAZE NOTED WHEN PT DOES OPEN EYES. SINUS RHYTHM WITH STABLE BP AND SEVERE BUE EDEMA NOTED WITH WEEPING ON LEFT SIDE, GENERALIZED EDEMA AND LABIAL EDEMA. VENT SETTING ACVC 18/400/7.0/35%. LUNGS CLEAR. TUBE FEEDS THROUGH OG TUBE AT 65CM AT GOAL OF 40/HR WITH 30ML Q 4HR WATER FLUSHES. RECTAL TUBE IN PLACE DRAINING SMALL/MOD ORANGE/BROWN LIQUID STOOL TO GRAVITY. JONES IN PLACE DRAINING INDERJIT URINE TO GRAVITY. WOUND NOTED ABOVE LIP WITH WOUND CARE ORDERS. WILL REVIEW AND CONTINUE PLAN OF CARE.
--- NOTE | 2024-11-05 21:33 | NUR ---
UPDATE: PT STANDS UP FROM CHAIR SAYING HE WANTS TO LEAVE. PT IS ALERT BUT NOT ORIENTED, OTHER THAN SELF. PT ASKS IF HE CAN LEAVE IF HE GETS A RIDE. PT TRIED CALLING A FRIEND, HAILY, BUT THERE WAS NO ANSWER. PT PARENTS LIVE IN [place]. PROVIDER CALLED AND IS ON THE WAY TO SPEAK TO PT ABOUT POTENTIAL AMA. PT IS CURRENTLY SITTING IN CHAIR WITH TWO RN'S IN ROOM.
[2024-11-06] VITALS (36 sets, daily range): BP systolic 110–174; BP diastolic 55–97
[2024-11-06 04:57] LABS: Hematocrit 19.6 % (33.0-51.0); Hemoglobin 7.0 g/dL (11.5-16.0); Mean Corpuscular HGB Conc 35.7 g/dL (31.5-36.5); Mean Corpuscular Volume 103 fL (80-100); NRBC ABSOLUTE 0.02 K/mm3 (0.00-0.02); NRBC Auto 0.2 /100 WBC (0.0-0.2); Platelet Count 103 K/mm3 (150-400); RDW Coefficient Variation 18.6 % (11.7-14.2); RDW Standard Deviation 65.5 fL (35.1-46.3)
[2024-11-06 05:18] LABS: Alanine Aminotransfer (ALT/SGP 79.0 U/L (12-78); Albumin, Blood 1.9 g/dL (3.4-5.0); Albumin/Globulin Ratio 0.7 (0.8-1.8); Anion Gap 7.0 mmol/L (3-11); Aspartate Aminotrans (AST/SGOT 188.0 U/L (12-37); Bilirubin, Total 1.8 mg/dL (0.1-1.0); Blood Urea Nitrogen 28.0 mg/dL (8-24); CO2, Blood 26.0 mmol/L (21-32); Calcium, Blood 7.9 mg/dL (8.5-10.1); Chloride, Blood 110.0 mmol/L (98-108); Creatinine, Blood 0.86 mg/dL (0.40-1.00); Globulin, Blood 2.9 g/dL (2.2-4.0); Glucose, Blood 119.0 mg/dL (70-99); Magnesium, Blood 1.9 mg/dL (1.6-2.4); Phosphorus, Blood 2.7 mg/dL (2.5-4.9); Potassium, Blood 3.7 mmol/L (3.5-5.5); Sodium, Blood 139.0 mmol/L (136-145); Total Protein, Blood 4.8 g/dL (6.4-8.2)
--- NOTE | 2024-11-06 06:08 | NUR ---
SHIFT SUMMARY PT VENTILATED AND SEDATED ON PROPOFOL 20. PT IS AROUSABLE WITH VOICE. DURING SHIFT, PT NODDED NO TO A COUPLE OF QUESTIONS, OTHERIWSE NO PURPOSEFUL MOVEMENTS. LEFT GAZE NOTED WHEN PT DOES OPEN EYES. EEG SHOWED NO SIGNS OF SEIZURE. SINUS RHYTHM WITH STABLE BP AND SEVERE BUE EDEMA NOTED WITH WEEPING ON LEFT SIDE, GENERALIZED EDEMA AND LABIAL EDEMA. VENT SETTING ACVC 18/400/7.0/35%. LUNGS CLEAR. TUBE FEEDS THROUGH OG TUBE AT 65CM AT GOAL OF 40/HR WITH 30ML Q 4HR WATER FLUSHES. RECTAL TUBE IN PLACE DRAINING SMALL/MOD ORANGE/BROWN LIQUID STOOL TO GRAVITY- 75ML FOR SHIFT. JONES IN PLACE DRAINING INDERJIT URINE TO GRAVITY- 600ML FOR SHIFT. WOUND CARE PERFORMED ON UPPER LIP AND BACITRACIN APPLIED TO LIPS. LARGE ECCHYMOSIS ON BOTH BUTTOCKS ARE STABLE AND SKIN IN COCCYX AREA IS INTACT. BEDSIDE SHIFT REPORT GIVEN TO ONCOMING DAY RN.
[2024-11-06 06:57] LABS: BAND PERCENT MAN 6 % (0-8); BASOPHILS ABSOLUTE MAN 0.00 K/mm3 (0.00-0.23); BASOPHILS PERCENT MAN 0 % (0-2); EOSINOPHILS ABSOLUTE MAN 0.79 K/mm3 (0.00-0.68); EOSINOPHILS PERCENT MAN 8 % (0-6); LYMPHOCYTES ABSOLUTE MAN 0.59 K/mm3 (0.84-5.20); LYMPHOCYTES PERCENT MAN 6 % (21-46); MONOCYTES ABSOLUTE MAN 0.39 K/mm3 (0.16-1.47); MONOCYTES PERCENT MAN 4 % (4-13); MYELOCYTE ABSOLUTE MAN 0.09 K/mm3 (0.00-0.00); MYELOCYTE PERCENT MAN 1 % (0-0); NEUTROPHILS ABSOLUTE MAN 8.01 K/mm3 (1.96-9.15); SEG NEUTROPHILS PERCENT MAN 75 % (41-73)
[2024-11-06] MEDS ORDERED: CeFAZolin Sodium 2,000 MG in NS 100 ML IV SCH (08:33)
[2024-11-06] MEDS ORDERED: FentaNYL Citrate 50 MCG/ML 2 ML Injection IV PRN ×2 (09:10→20:40)
--- NOTE | 2024-11-06 10:02 | NUR ---
AM NOTE: THIS RN ASSUMED CARE OF PT AT APPROX 0700, BEDSIDE REPORT FROM NOC RN. PT INTUBATED & SEDATED W/ PROPOFOL GTT. RASS -3. PT RESPONSIVE TO PAINFUL STIMULI, UNABLE TO FOLLOW COMMANDS. PUPILS EQUAL & REACTIVE, CORNEAL REFLEX INTACT BILATERALLY. NO MEANINGFUL MOVEMENT OBSERVED TO UPPER OR LOWER EXTREMITIES. PROPOFOL GTT TITRATED OFF THIS AM. SPO2 >90% ON VENT, SETTINGS AC/VC 18/400/7/35%. SMALL THICK SECRETIONS SUCTIONED VIA ETT. HR 80-100'S, SINUS RHYTHM ON MONITOR. SBP 110-130'S, MAP >65. AFEBRILE. TEMP JONES IN PLACE DRAINING YELLOW URINE TO GRAVITY. RECTAL TUBE DRAINING LIQUID BROWN STOOL; PT RECEIVING LACTULOSE VIA OGT. TF INFUSING AT GOAL RATE. ORAL CARE TO SUCTION. PT'S SPOUSE AT BEDSIDE THIS AM. PLANS FOR PT TO RECEIVE BLOOD TRANSFUSION THIS AM.
[2024-11-06] MEDS ORDERED: Folic Acid 1 MG TAB PT SCH (11:00)
[2024-11-06] MEDS ORDERED: NS 500 ML IV SCH (11:45)
[2024-11-06 15:11] LABS: Hematocrit 24.5 % (33.0-51.0); Hemoglobin 8.4 g/dL (11.5-16.0)
--- NOTE | 2024-11-06 17:40 | NUR ---
END OF SHIFT NOTE: PT REMAINS INTUBATED, PROPOFOL TITRATED OFF THIS AM & PRECEDEX INITIATED THIS PM. PRECEDEX GTT INFUSING AT 0.4MCG/KG/HR, SEE CC FLOWSHEET FOR TITRATIONS. RASS -2/-3 THIS AFTERNOON. PT UNABLE TO FOLLOW COMMANDS, OPENS EYES AT TIMES BUT UNABLE TO TRACK THIS RN. PUPILS EQUAL & REACTIVE, DOWNWARD GAZE AT TIMES & UPWARD LEFT GAZE NOTED AT OTHER TIMES. HR 80-110'S, SINUS RHYTHM ON MONITOR W/ FEW RUNS OF TRIGEMINY. SBP 130-170'S, MAP >65. SPO2 >90% ON VENT, SETTINGS AC/VC 18/400/7/35%. MINIMAL THICK SECRETIONS THIS AFTERNOON. TMAX 99.9, FAN & ICE PACK IN PLACE; CURRENT TEMP 99.0. JONES CATH IN PLACE, PATENT & DRAINING URINE TO GRAVITY; 440ML OUTPUT OF TIME OF THIS NOTE. RECTAL TUBE IN PLACE. FENTANYL ADMINISTERED FOR PAIN PRN. WOUND TO UPPER LIP DRESSING CHANGED X2 THIS SHIFT. REPOSITIONED Q2HRS, Q4HR ORAL CARE VIA SUCTION. PT'S SPOUSE AT BEDSIDE INTERMITTENTLY T/O SHIFT, STATES PT'S BROTHER WILL BE HERE ON FRIDAY TO SEE HER.
--- NOTE | 2024-11-06 20:00 | NUR ---
ASSUMPTION OF CARE CARE OF PT ASSUMED FOLLOWING BEDSIDE SHIFT REPORT FROM DAY RN. PT VENTILATED AND SEDATED ON PRECEDEX 0.4. DURING ASSESSMENT PT SHOOK NO TO QUESTION, AND DEMONSTRATED BORDERLINE PURPOSEFUL MOVEMENTS. CN'S GROSSLY INTACT. SINUS RHYTHM WITH STABLE BP AND SEVERE BUE EDEMA NOTED WITH WEEPING ON LEFT SIDE, GENERALIZED EDEMA AND LABIAL EDEMA. EDEMA IMPROVED FROM 24 HRS AGO. VENT SETTING ACVC 18/400/7.0/35%. LUNGS CLEAR WITH SOME EXP WHEEZING/RHONCHI IN THE BRONCHIAL LUNGS NOTED. TUBE FEEDS THROUGH OG TUBE AT 65CM AT GOAL OF 40/HR WITH 30ML Q 4HR WATER FLUSHES. RECTAL TUBE IN PLACE DRAINING SMALL/MOD ORANGE/BROWN LIQUID STOOL TO GRAVITY. JONES IN PLACE DRAINING INDERJIT URINE TO GRAVITY. WOUND NOTED ABOVE LIP WITH WOUND CARE ORDERS. WILL REVIEW AND CONTINUE PLAN OF CARE.
[2024-11-07] VITALS (22 sets, daily range): BP systolic 104–139; BP diastolic 54–80
[2024-11-07 04:03] LABS: BASOPHILS ABSOLUTE AUTO 0.02 K/mm3 (0.00-0.23); BASOPHILS PERCENT AUTO 0 % (0-2); EOSINOPHILS ABSOLUTE AUTO 0.18 K/mm3 (0.00-0.68); EOSINOPHILS PERCENT AUTO 2 % (0-6); Hematocrit 21.3 % (33.0-51.0); Hemoglobin 7.4 g/dL (11.5-16.0); IMMATURE GRAN ABSOLUTE AUTO 0.13 K/mm3 (0.00-0.10); IMMATURE GRAN PERCENT AUTO 2 % (0-1); LYMPHOCYTES ABSOLUTE AUTO 0.48 K/mm3 (0.84-5.20); LYMPHOCYTES PERCENT AUTO 6 % (21-46); MONOCYTES ABSOLUTE AUTO 1.08 K/mm3 (0.16-1.47); MONOCYTES PERCENT AUTO 14 % (4-13); Mean Corpuscular HGB Conc 34.7 g/dL (31.5-36.5); Mean Corpuscular Volume 100 fL (80-100); NEUTROPHILS ABSOLUTE AUTO 5.96 K/mm3 (1.96-9.15); NEUTROPHILS PERCENT AUTO 76 % (41-73); NRBC ABSOLUTE 0.00 K/mm3 (0.00-0.02); NRBC Auto 0.0 /100 WBC (0.0-0.2); Platelet Count 107 K/mm3 (150-400); RDW Coefficient Variation 19.4 % (11.7-14.2); RDW Standard Deviation 64.8 fL (35.1-46.3)
[2024-11-07 04:15] LABS: Albumin, Blood 1.8 g/dL (3.4-5.0); Anion Gap 9 mmol/L (3-11); Blood Urea Nitrogen 30 mg/dL (8-24); CO2, Blood 25 mmol/L (21-32); Calcium, Blood 7.8 mg/dL (8.5-10.1); Chloride, Blood 110 mmol/L (98-108); Creatinine, Blood 0.74 mg/dL (0.40-1.00); Glucose, Blood 113 mg/dL (70-99); Phosphorus, Blood 2.4 mg/dL (2.5-4.9); Potassium, Blood 3.7 mmol/L (3.5-5.5); Sodium, Blood 140 mmol/L (136-145)
--- NOTE | 2024-11-07 07:34 | NUR ---
SHIFT SUMMARY PT VENTILATED AND SEDATED ON PRECEDEX 0.5. PT IS AROUSABLE WITH VOICE. DURING SHIFT, PT NODDED NO TO A COUPLE OF QUESTIONS, OTHERIWSE NO PURPOSEFUL MOVEMENTS. PT MORE ACTIVE THAN PREVIOUS SHIFT. EEG SHOWED NO SIGNS OF SEIZURE. SINUS RHYTHM WITH STABLE BP AND SEVERE BUE EDEMA NOTED WITH WEEPING ON LEFT SIDE THAT CEASED WEEPING DURING SHIFT, GENERALIZED EDEMA AND LABIAL EDEMA. VENT SETTING ACVC 18/400/7.0/35%. LUNGS CLEAR/RHONCHOROUS. TUBE FEEDS THROUGH OG TUBE AT 65CM AT GOAL OF 40/HR WITH 30ML Q 4HR WATER FLUSHES. RECTAL TUBE IN PLACE DRAINING SCANT/SMALL ORANGE/BROWN LIQUID STOOL TO GRAVITY- 25ML FOR SHIFT. JONES IN PLACE DRAINING INDERJIT URINE TO GRAVITY- 350ML FOR SHIFT. WOUND CARE PERFORMED ON UPPER LIP BUT NO BANDAGE APPLIED AND BACITRACIN APPLIED TO LIPS. LARGE ECCHYMOSIS ON BOTH BUTTOCKS ARE STABLE AND SKIN IN COCCYX AREA IS INTACT. BEDSIDE SHIFT REPORT GIVEN TO ONCOMING DAY RN.
[2024-11-07 09:21] LABS: Hematocrit 24.9 % (33.0-51.0); Hemoglobin 8.8 g/dL (11.5-16.0)
--- NOTE | 2024-11-07 09:26 | NUR ---
AM NOTE: THIS RN ASSUMED CARE OF PT AT APPROX 0700, BEDSIDE REPORT FROM NOC RN. PT INTUBATED & SEDATED THIS AM. RASS -2, PRECEDEX GTT INFUSING AT 0.5MCG/KG/HR. PRECEDEX TITRATED DOWN TO 0.3MCG/KG/HR, PT ABLE TO OPEN EYES TO VERBAL STIMULI. UNABLE TO TRACK THIS RN BUT APPEARS TO BE LOOKING AROUND. UNABLE TO FOLLOW OTHER COMMANDS. GAG & COUGH PRESENT. PUPILS EQUAL & REACTIVE TO LIGHT. DOWNWARD GAZE NOTED & START OF SHIFT. SPO2 >90% ON VENT, SETTINGS AC/VC 18/400/7/35%. MOD-LARGE AMOUNT OF THICK YELLOW SPUTUM SUCTIONED OUT OF ETT. HR 40-50'S, SINUS KRYSTAL ON MONITOR. SBP 100-110'S, MAP >65. PT TEMP 93.9 THIS AM, TAKEN VIA TEMP JONES/AXILLARY/ESOPHAGEAL. WARM BLANKETS IN PLACE. JONES CATH PATENT & DRAINING TO GRAVITY. RECTAL TUBE IN PLACE, SCANT AMOUNT OF LIQUID BROWN OUTPUT IN TUBE. RT TO BEDSIDE THIS AM TO ADJUST ETT & SECUREMENT DEVICE TO PROTECT SKIN INTEGRITY. PT'S SIGNIFICANT OTHER, EMILE, AT BEDSIDE AT THIS TIME.
[2024-11-07 13:29] LABS: IMMATURE RETIC FRACTION 49.0 % (2.3-16.0); RETIC HGB EQUIVALENT 37.5 pg (28.20-36.60); RETICULOCYTE ABSOLUTE 0.0789 M/mm3 (0.0200-0.1100); RETICULOCYTE COUNT PERCENT 4.15 % (0.50-2.50)
[2024-11-07 15:47] LABS: Ferritin, Serum 188.0 ng/mL (8-252); Total Iron Binding Capacity 174.0 ug/dL (250-450)
[2024-11-07] MEDS ORDERED: Heparin Sodium,Porcine 5,000 UNIT/0.5 ML SDV SC SCH (16:00)
--- NOTE | 2024-11-07 17:59 | NUR ---
END OF SHIFT NOTE: NO ACUTE CHANGES FOLLOWING ASSUMPTION OF CARE. PT REMAINS INTUBATED & SEDATED W/ PRECEDEX GTT, SEE CC FLOWSHEET FOR TITRATIONS. FENTANYL IVP PRN FOR PAIN/SEDATION ADJUNCT. RASS -2. PT REMAINS UNABLE TO FOLLOW COMMANDS, OPENS EYES TO STIMULI W/O MEANINGFUL MOVEMENTS. VENT SETTINGS UNCHANGED, AC/VC 18/400/7/35%. MODERATE THICK YELLOW SPUTUM VIA ETT. SPO2 >90% ON VENT. HR 50-60'S, SINUS RHYTHM ON MONITOR. SBP 100-120'S, MAP >65. TEMP AT START OF SHIFT 93.9, UP TO 96.8 AT THIS TIME. JONES CATH IN PLACE W/ APPROX 990ML OUTPUT THIS SHIFT. RECTAL TUBE IN PLACE, APPROX 550ML LIQUID STOOL OUTPUT FOLLOWING ADMINISTRATION OF LACTULOSE VIA OGT. TF INFUSING AT GOAL RATE. PT'S PARTNER AT BEDSIDE T/O SHIFT. PALLIATIVE CARE RN AT BEDSIDE AT THIS TIME.
--- NOTE | 2024-11-07 19:21 | NUR ---
PALLIATIVE CARE VISIT: MADE SUPPORTIVE VISIT TO SANDIP BAPTISTE YESTERDAY AND TODAY. ACCORDING TO EMILE WE ARE AWAITING PT BROTHER TO ARRIVE BEFORE MAKING ANY FURTHER DECISIONS ABOUT TREATMENT. BROTHER DUE TO ARRIVE ON FRIDAY EVENING. PT STILL NOT EXHIBITING ANY MEANINGFUL MOVEMENT. GAVE PAMPHLET "MAKING HARD CHOICES FOR LOVED ONES" AND PALLIATIVE CARE SERVICES. ANSWERED QUESTIONS AND PROVIDED MORAL SUPPORT.
[2024-11-08] VITALS (22 sets, daily range): BP systolic 94–147; BP diastolic 52–83
[2024-11-08 04:23] LABS: BASOPHILS ABSOLUTE AUTO 0.02 K/mm3 (0.00-0.23); BASOPHILS PERCENT AUTO 0 % (0-2); EOSINOPHILS ABSOLUTE AUTO 0.24 K/mm3 (0.00-0.68); EOSINOPHILS PERCENT AUTO 4 % (0-6); Hematocrit 23.5 % (33.0-51.0); Hemoglobin 8.1 g/dL (11.5-16.0); IMMATURE GRAN ABSOLUTE AUTO 0.06 K/mm3 (0.00-0.10); IMMATURE GRAN PERCENT AUTO 1 % (0-1); LYMPHOCYTES ABSOLUTE AUTO 0.61 K/mm3 (0.84-5.20); LYMPHOCYTES PERCENT AUTO 9 % (21-46); MONOCYTES ABSOLUTE AUTO 0.89 K/mm3 (0.16-1.47); MONOCYTES PERCENT AUTO 13 % (4-13); Mean Corpuscular HGB Conc 34.5 g/dL (31.5-36.5); Mean Corpuscular Volume 100 fL (80-100); NEUTROPHILS ABSOLUTE AUTO 4.85 K/mm3 (1.96-9.15); NEUTROPHILS PERCENT AUTO 73 % (41-73); NRBC ABSOLUTE 0.00 K/mm3 (0.00-0.02); NRBC Auto 0.0 /100 WBC (0.0-0.2); Platelet Count 106 K/mm3 (150-400); RDW Coefficient Variation 19.8 % (11.7-14.2); RDW Standard Deviation 65.0 fL (35.1-46.3)
[2024-11-08 04:41] LABS: Alanine Aminotransfer (ALT/SGP 37.0 U/L (12-78); Albumin, Blood 1.5 g/dL (3.4-5.0); Albumin/Globulin Ratio 0.5 (0.8-1.8); Anion Gap 6.0 mmol/L (3-11); Aspartate Aminotrans (AST/SGOT 118.0 U/L (12-37); Bilirubin, Total 1.3 mg/dL (0.1-1.0); Blood Urea Nitrogen 36.0 mg/dL (8-24); CO2, Blood 26.0 mmol/L (21-32); Calcium, Blood 7.6 mg/dL (8.5-10.1); Chloride, Blood 113.0 mmol/L (98-108); Creatinine, Blood 0.74 mg/dL (0.40-1.00); Globulin, Blood 3.2 g/dL (2.2-4.0); Glucose, Blood 98.0 mg/dL (70-99); Phosphorus, Blood 2.7 mg/dL (2.5-4.9); Potassium, Blood 4.0 mmol/L (3.5-5.5); Sodium, Blood 141.0 mmol/L (136-145); Total Protein, Blood 4.7 g/dL (6.4-8.2)
--- NOTE | 2024-11-08 05:20 | NUR ---
SHIFT SUMMARY PT IS INTUBATED AND SEDATED WITH PROPOFOL. PRECEDEX WAS STOPPED AND PROPOFOL WAS STARTED R/T PT CLAMPING DOWN ON ETT AND FIGHTING VENT. PT APPEARS MORE COMFORTABLE AND IS TOLERATING VENT MUCH BETTER WITH PROPOFOL. PT IS NOT FOLLOWING COMMANDS, BUT APPEARS TO HAVE SOME PURPOSEFUL MOVEMENTS NOTED. SHE DOES OPEN HER EYES TO PAINFUL STIMULI. HR 60S, BP STABLE, NSR. VENT SETTINGS DID NOT CHANGE T/O SHIFT, SATS > 94%, HOLSTER CHANGED BY RT. HAD SOME LEAKING AROUND RECTAL TUBE, DID COMPLETE LINEN CHANGE AND CHG BATH. NEW TF SET UP AND INFUSING TO OGT AT GOAL RATE OF 40ML/H. JONES PATENT, LITTLE UOP NOTED. PT IS UNRESTRAINED. LABS LOOKED OK THIS AM.
[2024-11-08] MEDS ORDERED: Petrolatum/Mineral Oil/Lanolin 1 APPLIC/50 GM Tube TOP SCH (14:00)
[2024-11-08] MEDS ORDERED: Miconazole Nitrate 2% 85 GM PWD TOP SCH (21:00)
[2024-11-09] VITALS (22 sets, daily range): BP systolic 96–144; BP diastolic 51–92
[2024-11-09 03:53] LABS: BASOPHILS ABSOLUTE AUTO 0.03 K/mm3 (0.00-0.23); BASOPHILS PERCENT AUTO 0 % (0-2); EOSINOPHILS ABSOLUTE AUTO 0.26 K/mm3 (0.00-0.68); EOSINOPHILS PERCENT AUTO 3 % (0-6); Hematocrit 23.6 % (33.0-51.0); Hemoglobin 8.2 g/dL (11.5-16.0); IMMATURE GRAN ABSOLUTE AUTO 0.08 K/mm3 (0.00-0.10); IMMATURE GRAN PERCENT AUTO 1 % (0-1); LYMPHOCYTES ABSOLUTE AUTO 0.89 K/mm3 (0.84-5.20); LYMPHOCYTES PERCENT AUTO 11 % (21-46); MONOCYTES ABSOLUTE AUTO 1.19 K/mm3 (0.16-1.47); MONOCYTES PERCENT AUTO 14 % (4-13); Mean Corpuscular HGB Conc 34.7 g/dL (31.5-36.5); Mean Corpuscular Volume 101 fL (80-100); NEUTROPHILS ABSOLUTE AUTO 5.98 K/mm3 (1.96-9.15); NEUTROPHILS PERCENT AUTO 71 % (41-73); NRBC ABSOLUTE 0.00 K/mm3 (0.00-0.02); NRBC Auto 0.0 /100 WBC (0.0-0.2); Platelet Count 151 K/mm3 (150-400); RDW Coefficient Variation 19.5 % (11.7-14.2); RDW Standard Deviation 64.3 fL (35.1-46.3)
[2024-11-09 04:09] LABS: Albumin, Blood 1.5 g/dL (3.4-5.0); Anion Gap 6 mmol/L (3-11); Blood Urea Nitrogen 38 mg/dL (8-24); CO2, Blood 27 mmol/L (21-32); Calcium, Blood 7.7 mg/dL (8.5-10.1); Chloride, Blood 113 mmol/L (98-108); Creatinine, Blood 0.75 mg/dL (0.40-1.00); Glucose, Blood 103 mg/dL (70-99); Phosphorus, Blood 2.8 mg/dL (2.5-4.9); Potassium, Blood 3.7 mmol/L (3.5-5.5); Sodium, Blood 142 mmol/L (136-145)
--- NOTE | 2024-11-09 05:43 | NUR ---
SHIFT SUMMARY PT INTUBATED AND SEDATED WITH PROPOFOL. NOT FOLLOWING COMMANDS OR TRACKING. WILL OPEN EYES TO STIMULI. PT HAD EPISODE OF OVERBREATHING VENT W/ RR IN THE 30'S AND BITING DOWN ON TUBE- TITRATED PROPOFOL UP TO 35 BY 5 MCG INCREMENTS UNTIL VENT COMPLIANCE WAS ACHIEVED. FENT 50 MCG WAS GIVEN ALMOST EVERY 2 HOURS W/O SUCCESS. SLOWLY TITRATING PROPOFOL BACK DOWN AT THIS TIME. HR 70-80'S, BP STABLE, SATS > 94%. SUCTIONED LOTS OF SECRETIONS T/O SHIFT. JONES IN PLACE AND DRAINING TO GRAVITY. RECTAL TUBE PATENT WITH MINIMAL OUTPUT THIS SHIFT. TF INFUSING TO OGT AT GOAL RATE OF 40ML/H. TEMPS FLUCTUATED T/O SHIFT. NO OTHER ACUTE EVENTS, PT APPEARS COMFORTABLE AT THIS TIME.
--- NOTE | 2024-11-09 10:26 | NUR ---
AM NOTE: THIS RN ASSUMED CARE OF PT AT APPROX 0700, BEDSIDE REPORT FROM NOC RN. PT INTUBATED & SEDATED W/ PROPOFOL GTT INFUSING AT 15MCG/KG/MIN. RASS -2. PT ABLE TO OPEN LEFT EYE INTERMITTENTLY. PUPILS EQUAL & REACTIVE TO LIGHT. WITHDRAWS TO PAINFUL STIMULI, UNRESPONSIVE TO VERBAL STIMULI. UNABLE TO FOLLOW ANY COMMANDS. ABLE TO MOVE ALL EXTREMITIES, LOWER > UPPER; NO MEANINGFUL MOVEMENTS OBSERVED. BUE & LLE W/ +2 EDEMA, RLE W/ +3 EDEMA & REDNESS. ULTRASOUND OF RLE COMPLETED THIS AM. VSS. HR 80-90'S, SINUS RHYTHM ON MONITOR. SBP 110-140'S, MAP >65. SPO2 >90% ON VENT; SETTINGS AC/VC 18/400/7/45%. LARGE AMOUNT OF YELLOW/WILSON SECRETIONS SUCTIONED VIA ETT. AFEBRILE W/ CORE TEMP. JONES CATH PATENT & DRAINING INDERJIT URINE TO GRAVITY. RECTAL TUBE IN PLACE DRAINING LIQUID BROWN STOOL; PT CONTINUES TO RECEIVE LACTULOSE VIA OGT. TF INFUSING AT GOAL RATE W/ Q4HR FLUSHES. PICC LINE TO LUE WNL. PRECEDEX GTT INITIATED THIS SHIFT PER DR. TANG TO TRANSITION OFF PROPOFOL GTT. SEE CC FLOWSHEET FOR ALL TITRATIONS. FENTANYL IVP NEEDED FOR PAIN. SCATTERED WOUNDS NOTED, WOUND CARE PER ORDERS. SIGNIFICANT OTHER, EMILE, AT BEDSIDE AT THIS TIME.
--- NOTE | 2024-11-09 16:14 | NUR ---
Spiritual Care Visit. Pt. is intubated and is not responsive. SO is bedside and welcomes my visit. Facillitated an update. SO verbalized that that he and the Pt. are awaiting the arrival of the Pts. brother who is driving up from [place]. Rapport is re-established with the SO. SO displayed evidence of being encouraged, and verbalized gratitdue for the spiritual care support.
--- NOTE | 2024-11-09 17:50 | NUR ---
END OF SHIFT NOTE: PT REMAINS INTUBATED & SEDATED, TITRATED OFF PROPOFOL & ONTO PRECEDEX FOR SEDATION. SEE CC FLOWSHEET FOR TITRATIONS. PRECEDEX GTT INFUSING AT 1.0 MCG/KG/HR. RASS -3. FENTANYL NEEDED FOR PAIN RELIEF/SEDATION ADJUNCT. PT REMAINS RESPONSIVE TO PAINFUL STIMULI, UNABLE TO FOLLOW ANY COMMANDS. MOVING ALL EXTREMITIES, BLE > BUE. VSS. HR 50-90'S, SINUS RHYTHM ON MONITOR. SBP 100-140'S, MAP >65. SPO2 >90% ON VENT; SETTINGS UNCHANGED, AC/VC 18/400/7/45%. MODERATE-LARGE AMOUNT OF THICK YELLOW/WILSON/PINK SECRETIONS SUCTIONED VIA ETT. AFEBRILE W/ CORE TEMP. JONES CATH IN PLACE W/ >2L OUTPUT OF TIME OF THIS NOTE; DIURESING. RECTAL TUBE IN PLACE DRAINING LIQUID STOOL, CONTINUES RECEIVING LACTULOSE; APPROX 20ML OUTPUT THIS SHIFT. TF CONTINUES INFUSING AT GOAL RATE S/O EMILE REMAINS AT BEDSIDE TODAY, BROTHER SUNG IS REPORTEDLY ON HIS WAY & EXPECTED TO BE AT BEDSIDE IN THE AM.
[2024-11-10] VITALS (24 sets, daily range): BP systolic 79–125; BP diastolic 47–69
[2024-11-10 04:02] LABS: BASOPHILS ABSOLUTE AUTO 0.02 K/mm3 (0.00-0.23); BASOPHILS PERCENT AUTO 0 % (0-2); EOSINOPHILS ABSOLUTE AUTO 0.23 K/mm3 (0.00-0.68); EOSINOPHILS PERCENT AUTO 3 % (0-6); Hematocrit 24.8 % (33.0-51.0); Hemoglobin 8.6 g/dL (11.5-16.0); IMMATURE GRAN ABSOLUTE AUTO 0.06 K/mm3 (0.00-0.10); IMMATURE GRAN PERCENT AUTO 1 % (0-1); LYMPHOCYTES ABSOLUTE AUTO 0.80 K/mm3 (0.84-5.20); LYMPHOCYTES PERCENT AUTO 11 % (21-46); MONOCYTES ABSOLUTE AUTO 0.84 K/mm3 (0.16-1.47); MONOCYTES PERCENT AUTO 11 % (4-13); Mean Corpuscular HGB Conc 34.7 g/dL (31.5-36.5); Mean Corpuscular Volume 101 fL (80-100); NEUTROPHILS ABSOLUTE AUTO 5.46 K/mm3 (1.96-9.15); NEUTROPHILS PERCENT AUTO 74 % (41-73); NRBC ABSOLUTE 0.00 K/mm3 (0.00-0.02); NRBC Auto 0.0 /100 WBC (0.0-0.2); Platelet Count 147 K/mm3 (150-400); RDW Coefficient Variation 19.3 % (11.7-14.2); RDW Standard Deviation 65.2 fL (35.1-46.3)
[2024-11-10 04:21] LABS: Alanine Aminotransfer (ALT/SGP 15.0 U/L (12-78); Albumin, Blood 1.5 g/dL (3.4-5.0); Albumin/Globulin Ratio 0.5 (0.8-1.8); Anion Gap 7.0 mmol/L (3-11); Aspartate Aminotrans (AST/SGOT 92.0 U/L (12-37); Bilirubin, Direct 0.8 mg/dL (0.0-0.3); Bilirubin, Indirect 0.4 mg/dL (0.1-0.7); Bilirubin, Total 1.2 mg/dL (0.1-1.0); Blood Urea Nitrogen 43.0 mg/dL (8-24); CO2, Blood 28.0 mmol/L (21-32); Calcium, Blood 8.3 mg/dL (8.5-10.1); Chloride, Blood 110.0 mmol/L (98-108); Creatinine, Blood 0.77 mg/dL (0.40-1.00); Globulin, Blood 3.3 g/dL (2.2-4.0); Glucose, Blood 123.0 mg/dL (70-99); Magnesium, Blood 1.9 mg/dL (1.6-2.4); Potassium, Blood 4.1 mmol/L (3.5-5.5); Sodium, Blood 141.0 mmol/L (136-145); Total Protein, Blood 4.8 g/dL (6.4-8.2)
--- NOTE | 2024-11-10 04:39 | NUR ---
SHIFT SUMMARY PT INTUBATED AND SEDATED WITH PRECEDEX AND PRN FENT PUSHES, RASS -3. MAINTAINED ADEQUATE SEDATION T/O NIGHT. RESPONDS TO STIMULI SOMETIMES AND NOT OTHERS. NO PURPOSEFUL MOVEMENTS NOTED, NOT FOLLOWING COMMANDS. + CORNEAL REFLEX, NOT TRACKING, PUPILS REACTIVE. STILL UNRESTRAINED. TOLERATING VENT, SATS > 94%, HAD SMALL CUFF LEAK THIS MORNING, 1ML AIR ADDED. NO VENT SETTING CHANGES OVERNIGHT. LOTS OF SECRETIONS SUCTIONED OUT T/O SHIFT. HR KRYSTAL IN THE 50'S, BP STABLE, MAPS > 65. JONES DRAINING TO GRAVITY, GOOD UOP NOTED. RECTAL TUBE STILL IN PLACE. MEPALEX DRESSINGS CHANGED DURING CHG BATH. TF INFUSING AT GOAL RATE, NEW BOTTLE SETUP. ALL EXTREMITIES PLACED ON PILLOWS AND WEDGES TO HELP DECREASE SWELLING. TMAX 97.8, LOWEST WAS 96.3- WARM BLANKETS ADDED. NO ACUTE EVENTS.
--- NOTE | 2024-11-10 11:07 | NUR ---
AM NOTE: THIS RN ASSUMED CARE OF PT AT APPROX 0700, BEDSIDE REPORT FROM NOC RN. PT INTUBATED & SEDATED W/ PRECEDEX GTT INFUSING AT 1.0MCG/KG/HR AT START OF SHIFT. PRECEDEX GTT TITRATED OFF AT 1015 FOR SAT. FENTANYL ADMINISTERED NEEDED FOR PAIN. RASS -3. PUPILS EQUAL & REACTIVE, CHANGING BETWEEN LEFT & DOWNWARD GAZE. UNABLE TO TRACK. MOVING ALL EXTREMITIES, RESPONSIVE TO PAINFUL STIMULI. COUGH & GAG PRESENT. REPEAT HEAD CT COMPLETED THIS MORNING. VSS. HR 50-60'S, SINUS RHYTHM ON MONITOR. SBP 100-120'S, MAP >65. SPO2 >90% ON VENT; SETTINGS AC/VC 18/400/7/30%. AFEBRILE. JONES CATH IN PLACE DRAINING YELLOW URINE TO GRAVITY. RECTAL TUBE W/ LARGE AMOUNT OF LIQUID BROWN OUTPUT FOLLOWING LACTULOSE ADMINISTRATION. OGT INFUSING TF AT GOAL. PT'S SIGNIFICANT OTHER & BROTHER AT BEDSIDE THIS AM DISCUSSING GOALS OF CARE W/ DR. TANG.
--- NOTE | 2024-11-10 11:15 | NUR ---
"Spiritual Care | Family Support Pt. is intubated and is not responsive. SO and Pts. brother are both at bedside. Facilitated an update. The men verbalized that they wanted to give the Pt. more time to respond to treatment, and were both thankful for the spiritual care support. Will remain available for the Pt. and family."
[2024-11-10] MEDS ORDERED: FentaNYL Citrate 50 MCG/ML 2 ML Injection IV PRN (12:59)
--- NOTE | 2024-11-10 13:01 | NUR ---
PHYSICIAN CONTACT: THIS RN AT PT'S BEDSIDE DUE TO VENT ALARMS. PT RR UPPER 20'S/LOWER 30'S. PT NOTED TO BE MOVING BOTH LEGS CONTINUOUSLY & LEFT UPPER EXTREMITY. GRIMACING, CLENCHING DOWN ON BITE BLOCK. CALL PLACED TO DR. TANG. ORDERS RECEIVED TO INCREASE FENTANYL FREQUENCY TO Q1HR & INITIATE SBT. RT NOTIFIED.
[2024-11-10] MEDS ORDERED: Arginine/Glutamine/Calcium Hmb 1 Packet PT SCH (14:30)
--- NOTE | 2024-11-10 17:59 | NUR ---
END OF SHIFT NOTE: PT OFF PRECEDEX GTT FROM [id number] & ON SPONTANEOUS 16/7/40% FROM 5621-8073 TODAY. PT BECAME VERY RESTLESS, GRIMACING, AND FIGHTING THE VENT. TRANSITIONED BACK TO AC/VC THIS EVENING, SETTINGS 18/400/7/40%. LARGE AMOUNT OF WILSON SECRETIONS VIA ETT. NEURO REMAINS UNCHANGED; PT OPENS EYES INTERMITTENTLY BUT IS UNABLE TO FOLLOW ANY COMMANDS. MOVING ALL EXTREMITIES, NOT PURPOSEFUL. HR UP TO 100'S, SINUS/SINUS TACH ON MONITOR. SBP 90-120'S, MAP >65. TMAX 100.0, ICE PACKS APPLIED TO PREVENT FURTHER TEMP INCREASE. JONES CATH PATENT & DRAINING, 1435ML OUTPUT THIS SHIFT. RECTAL TUBE CONTINUES TO DRAIN LIQUID BROWN STOOL, 800ML OUTPUT THIS SHIFT. OGT INFUSING TF AT GOAL. LUISA ADDED THIS AFTERNOON PER DIETARY. ETT REPOSITIONED W/ RT THIS AM TO PREVENT FURTHER SKIN BREAKDOWN ON LIP WOUND. Q2HR REPOSITIONING & NEEDED FOR COMFORT. PT RECEIVING FENTANYL PER EMAR FOR PAIN. S/O EMILE & BROTHER SUNG REMAIN AT BEDSIDE.
[2024-11-10] MEDS ORDERED: Gabapentin 250 MG/5 ML ORAL SYRINGE PT SCH (21:00)
[2024-11-11] VITALS (36 sets, daily range): BP systolic 81–145; BP diastolic 48–77
[2024-11-11 04:26] LABS: BASOPHILS ABSOLUTE AUTO 0.03 K/mm3 (0.00-0.23); BASOPHILS PERCENT AUTO 0 % (0-2); EOSINOPHILS ABSOLUTE AUTO 0.35 K/mm3 (0.00-0.68); EOSINOPHILS PERCENT AUTO 4 % (0-6); Hematocrit 24.3 % (33.0-51.0); Hemoglobin 8.3 g/dL (11.5-16.0); IMMATURE GRAN ABSOLUTE AUTO 0.10 K/mm3 (0.00-0.10); IMMATURE GRAN PERCENT AUTO 1 % (0-1); LYMPHOCYTES ABSOLUTE AUTO 0.92 K/mm3 (0.84-5.20); LYMPHOCYTES PERCENT AUTO 10 % (21-46); MONOCYTES ABSOLUTE AUTO 1.02 K/mm3 (0.16-1.47); MONOCYTES PERCENT AUTO 11 % (4-13); Mean Corpuscular HGB Conc 34.2 g/dL (31.5-36.5); Mean Corpuscular Volume 103 fL (80-100); NEUTROPHILS ABSOLUTE AUTO 6.81 K/mm3 (1.96-9.15); NEUTROPHILS PERCENT AUTO 74 % (41-73); NRBC ABSOLUTE 0.00 K/mm3 (0.00-0.02); NRBC Auto 0.0 /100 WBC (0.0-0.2); Platelet Count 172 K/mm3 (150-400); RDW Coefficient Variation 19.4 % (11.7-14.2); RDW Standard Deviation 66.4 fL (35.1-46.3)
[2024-11-11 04:44] LABS: Alanine Aminotransfer (ALT/SGP 13.0 U/L (12-78); Albumin, Blood 1.4 g/dL (3.4-5.0); Albumin/Globulin Ratio 0.4 (0.8-1.8); Anion Gap 6.0 mmol/L (3-11); Aspartate Aminotrans (AST/SGOT 90.0 U/L (12-37); Bilirubin, Direct 0.8 mg/dL (0.0-0.3); Bilirubin, Indirect 0.4 mg/dL (0.1-0.7); Bilirubin, Total 1.2 mg/dL (0.1-1.0); Blood Urea Nitrogen 54.0 mg/dL (8-24); CO2, Blood 28.0 mmol/L (21-32); Calcium, Blood 8.2 mg/dL (8.5-10.1); Chloride, Blood 114.0 mmol/L (98-108); Creatinine, Blood 0.74 mg/dL (0.40-1.00); Globulin, Blood 3.3 g/dL (2.2-4.0); Glucose, Blood 124.0 mg/dL (70-99); Magnesium, Blood 1.9 mg/dL (1.6-2.4); Potassium, Blood 3.8 mmol/L (3.5-5.5); Sodium, Blood 144.0 mmol/L (136-145); Total Protein, Blood 4.7 g/dL (6.4-8.2)
--- NOTE | 2024-11-11 06:40 | NUR ---
SHIFT SUMMARY PT REMAINS VENTED AND SEDATED. NO ACUTE EVENTS OVERNIGHT. NEURO: ON PRECEDEX @ 1.2 MCG/KG/HR. WILL MOVE ALL 4 EXTREMITIES SPONTANEOUSLY, WITHDRAWS WEAKLY TO PAIN. REFLEXES IN TACT. PUPILS ROUND EQUAL AND REACTIVE @ 2. GAZE VARIES FROM MIDLINE TO LEFT. OPENS EYES TO PAINFUL STIMULI. CARDIAC: NSR TO KRYSTAL ON CONTINOUS CARDIAC MONITORING. HYPOTENSIVE, BUT MAP REMAINS >65. OFF PRESSORS. PULSES PALPABLE THROUGHOUT. MURMOR ON AUSCULTATION. GENERALIZED EDEMA THROUGHOUT. TMAX OVERNIGHT 98.7 FROM CORE TEMP. RESP: ETT. ACVC FIO2 40%, RATE 18, PEEP 7, TV 400. COURSE LUNG SOUNDS THROUGHOUT. COPIOUS SECRETIONS. THICK WILSON/WHITE SECRETIONS FROM IN-LINE CATHETER. CLEAR ORAL SECRETIONS. HOWEVER TURNED BLOOD TINGED DUE TO PRESSURE BLEEDING FROM LIP SORES AND PRESSURE INJURY. ORAL CARE DONE Q4HRS. GI/: RECTAL TUBE IN PLACE, RECEIVING LACTULOSE. 275MLS OF WILSON LIQUID STOOL. OG IN PLACE WITH TUBE FEEDS RUNNING AT GOAL OF 40ML/HR WITH 30ML WATER FLUSHES Q4HRS. TEMP SENSING JONES REMAINS IN PLACE 340MLS OF DARK YELLOW URINE OUT. HYPOACTIVE BOWEL SOUNDS. SKIN: VARIOUS SCATTERED ABRASIONS AND SKIN TEARS. STAGE 2 PRESSURE INJURY ON LIP. SKIN TEAR ON RIGHT UPPER ARM. SKIN TEAR ON RIGHT LOWER LEG. ACTIVITY: Q2 TURNS. LINES: TRIPLE LUMEN PICC LINE IN LEFT UPPER ARM. CARE PLAN ONGOING.
--- NOTE | 2024-11-11 18:13 | NUR ---
SHIFT SUMMARY PT REMAINS INTUBATED AND SEDATED AT THIS TIME. PT WITH PROLONGED SEDATION VACATION THIS SHIFT, AND ON PRESSURE SUPPORT VENT SETTINGS MOST OF THIS SHIFT. PT BECAME INCREASINGLY AGITATED AND ATTEMPTING TO BITE ETT THIS EVENING WITH RR INCREASING TO 40'S. PRECEDEX RESTARTED AND CURRENTLY INFUSING AT 0.7 MCG/KG/MIN. PT RECIEVED FENTANYL PRN PER EMAR. PT VENT SETTINGS AC/VC 18, TV 400, PEEP 5, FIO2 30%. PT WITH CONTINUED BLEEDING FROM LIPS AND NO CHANGE IN SWELLING. ETT DENIS REMAINS SECURED TO CHIN. OGT REMAINS IN PLACE WITH TF INFUSING AT GOAL RATE. PICC TO JOSE C/D/I. JONES TEMP PROBE REMAINS IN PLACE WITH DARK YELLOW URINE OUTPUT NOTED. RECTAL TUBE REPLACED THIS SHIFT, PT WITH CONTINUED LARGE VOLUME OF LIQUID STOOL NOTED. VITAL SIGNS REMAIN STABLE. PT FAMILY AT BEDSIDE MOST OF THIS SHIFT. PT WITH SPONTANEOUS MOVEMENT NOTED TO LEFT ARM, AND ATTEMPTS TO OPEN EYES TO VOICE, BUT DOES NOT FOLLOW ANY COMMANDS. WILL CONTINUE TO MONITOR AND REPORT OFF TO ONCOMING RN.
--- NOTE | 2024-11-11 18:57 | NUR ---
PALLIATIVE CARE VISIT: SUPPORTIVE VISIT MADE TODAY AT 1130. MET WITH AND S/O EMILE. PT CONTINUES TO BE ON VENTILATOR AND NO SEDATION CURRENTLY. HAS NOT DEMONSTRATED ANY SIGNIFICANT RESPONSE TO FOLLOWING COMMANDS PER PRIMARY RN. REVIEWED GOALS OF CARE WITH AND EMILE. THEY CONTINUE TO WANT PT TO BE A FULL CODE. THEY ARE CONSIDERING PT TO HAVE PROCEDURE TO PLACE TRACHEOSTOMY IF PT DOES NOT RESPOND. THEY DO NOT WANT PROLONGED LIFE SUPPORT IF PT IS DETERMINED TO BE BRAIN , HOWEVER THEY WANT TO TRY EVERYTHING UNTIL THAT HAS BEEN DETERMINED. WILL CONTINUE SUPPORTIVE VISITS.
--- NOTE | 2024-11-11 19:00 | NUR ---
ASSUMPTION OF CARE: ASSUMED CARE AT START OF SHIFT (1899). PT IS DOING WELL, THEY ARE INTUBATED AND SEDATED IN BED. ON PRECEDEX GTT PER EMR ORDERS. PT IS NOT ALERT, NOT FOLLOWING COMMANDS, THEY ARE RESPONSIVE TO PAINFUL STIMULI AND WILL SPONTANEPUSLY TRYING TOP GRAB AND REACH FOR ETT TUBE AND LINES. LUNG SOUNDS ARE CLEAR AND EQUAL BILATERALLY, VENT- ACVC: 18/400/5/30%, ETT 7.5 AND 24 @ LIPS. SINUS RYTHM WITH SBP: 120'S MAP >65 HR: 60-70. IV: PICC LINE IN LUE. RECTAL TUBE AND JONES CATHETER IN PLACE AND DRAINING TO GRAVITY. SKIN: SCATTERED SKIN TEARS AND BRUISING, SKIN TEARS ARE COVERED WITH MEPILEX. LINES, CORDS, AND TUBES PLACED OUT OF REACH. CALL LIGHT PLACED WITHIN REACH.
[2024-11-12] VITALS (47 sets, daily range): BP systolic 90–123; BP diastolic 47–84
[2024-11-12 03:56] LABS: Hematocrit 26.4 % (33.0-51.0); Hemoglobin 9.1 g/dL (11.5-16.0); Mean Corpuscular HGB Conc 34.5 g/dL (31.5-36.5); Mean Corpuscular Volume 103 fL (80-100); NRBC ABSOLUTE 0.00 K/mm3 (0.00-0.02); NRBC Auto 0.0 /100 WBC (0.0-0.2); Platelet Count 173 K/mm3 (150-400); RDW Coefficient Variation 19.4 % (11.7-14.2); RDW Standard Deviation 68.4 fL (35.1-46.3)
[2024-11-12 04:27] LABS: Albumin, Blood 1.5 g/dL (3.4-5.0); Anion Gap 7 mmol/L (3-11); Blood Urea Nitrogen 69 mg/dL (8-24); CO2, Blood 27 mmol/L (21-32); Calcium, Blood 8.4 mg/dL (8.5-10.1); Chloride, Blood 116 mmol/L (98-108); Creatinine, Blood 0.72 mg/dL (0.40-1.00); Glucose, Blood 104 mg/dL (70-99); Phosphorus, Blood 2.8 mg/dL (2.5-4.9); Potassium, Blood 3.6 mmol/L (3.5-5.5); Sodium, Blood 146 mmol/L (136-145)
--- NOTE | 2024-11-12 06:19 | NUR ---
SHIFT SUMMARY: PT IS DOING WELL AND RESTING IN BED. PT IS INTUBATED AND SEDATED ON PRECEDEX GTT PER EMR ORDERS. ETT 7.5 AND 24 @ TEETH, PT WAS ABLE TO GUM THE BITE BLOCK OUT OF MOUTH BUT ETT TUBE IS STILL IN PLACE. LUNG SOUNDS ARE CLEAR AND EQUAL BILATERALLY. SPO2 >92%. SINUS RYTHM BP STABLE WITH MAP >65 AND HR: 50-70'S. IV: PICC LINE IN LUE. JONES CATHETER AND RECTAL TUBE IN PLACE AND DRAINING TO GRAVITY. SKIN: EDAMETOUS, SCATTERED SKIN TEARS AND BRUISING, SKIN TEARS COVERED WITH MEPILEX AND NEW PICTURES WERE TAKEN AND PLACED IN CHART. LIPS ARE SWOLLEN, CRACKED AND BLEEDING. LINES, CORDS, AND TUBES PLACED OUT OF REACH. CALL LIGHT PLACED WITHIN REACH.
--- NOTE | 2024-11-12 10:18 | NUR ---
"Spiritual Care | Familiy Support Met with SO who is at bedside. SO verbalized his understanding that they are looking to do a Trach on Friday. SO verbalized that Pts. brother remains in town and will at least through the trach procedure. SO verbalized gratitude for the spiritual care support."
--- NOTE | 2024-11-12 17:27 | NUR ---
SHIFT SUMMARY PT IN SEDATED IN BED AT TIME OF BEDSIDE REPORT. PT UNABLE TO FOLLOW COMMANDS, PUPILS PERRL BUT NOT TRACKING. FREQUENT GRIMACING AND MUSCLE TENSION, MEDICATED PER CPOT AND EMAR. NSR ON MONITOR, MAPS >65, CAP REFILL <3 SEC, EDEMA IN BUE, BLE, LABIA, AND GENERALIZED. LUNGS SOUNDS CLEAR, ETT 23 AT TEETH, VENT SETTINGS ACVC 18/400/5/30. ABD SOFT AND NONTENDER TO PALPATION, OGT PRESENT 63CM AT TEETH. TF RUNNING AT GOAL. RECTAL TUBE IN PLACE DRAINING TO GRAVITY. JONES CATHETER IN PLACE DRAINING TO GRAVITY. SCATTERED ECCHYMOSIS T/O, SWELLING/SKIN BREAKDOWN TO UPPER LIP, REDNESS TO LABIA. 0900: PT SET TO SPONTANEOUS ON VENT, SETTINGS 14//30. SEDATION PAUSED. 1200: SEDATION RESUMED AND TITRATED D/T SEVERE PAIN/DISCOMFORT OBSERVED DESPITE PRN FENTANYL PUSHES. PLACED BACK ON ACVC VENT SUPPORT D/T TACHYPNEA. LUE PICC IN PLACE.
[2024-11-12] MEDS ORDERED: Protein Supplement 30 ML UD PO SCH (21:00)
--- NOTE | 2024-11-12 21:09 | NUR ---
ASSUMPTION OF CARE: ASSUMED CARE AT START OF SHIFT (1899). PT IS DOING WELL, THEY ARE INTUBATED AND SEDATED ON PRECEDEX GTT PER EMR ORDERS IN BED. PT NOT FOLLOWING COMMANDS, AND RESPONSIVE TO PAINFUL STIMULI. PT IN BILATERAL WRIST RESTRAINTS BECAUSE PT WILL REACH TOWARDS LINES/TUBES. LUNG SOUNDS ARE CLEAR AND EQUAL BILATERALLY, SPO2 >95% VENT: ACVC 18/400/5/40%. SINUS RYTHM WITH SBP: 90-100'S MAP >65 HR: 50-60'S. IV: PICC LINE IN LUE. JONES CATHETER AND RECTAL TUBE IN PLACE AND DRAINING TO GRAVITY. OG TUBE IN PLACE ND CONNECTED TO CONTINUOUS TF. SKIN: EDAMETOUS, SCATTERED SKIN TEARS COVER WITH MEPILEX. LINES, CORDS, AND TUBES PLACED OUT OF REACH. CALL LIGHT PLACED WITH IN REACH.
[2024-11-13] VITALS (46 sets, daily range): BP systolic 99–134; BP diastolic 46–81
[2024-11-13 04:48] LABS: Hematocrit 24.5 % (33.0-51.0); Hemoglobin 8.2 g/dL (11.5-16.0); Mean Corpuscular HGB Conc 33.5 g/dL (31.5-36.5); Mean Corpuscular Volume 103 fL (80-100); NRBC ABSOLUTE 0.02 K/mm3 (0.00-0.02); NRBC Auto 0.3 /100 WBC (0.0-0.2); Platelet Count 208 K/mm3 (150-400); RDW Coefficient Variation 19.6 % (11.7-14.2); RDW Standard Deviation 68.0 fL (35.1-46.3)
[2024-11-13 05:07] LABS: Anion Gap 9.0 mmol/L (3-11); Blood Urea Nitrogen 78.0 mg/dL (8-24); CO2, Blood 24.0 mmol/L (21-32); Calcium, Blood 8.6 mg/dL (8.5-10.1); Chloride, Blood 118.0 mmol/L (98-108); Creatinine, Blood 0.73 mg/dL (0.40-1.00); Glucose, Blood 115.0 mg/dL (70-99); Potassium, Blood 3.5 mmol/L (3.5-5.5); Sodium, Blood 147.0 mmol/L (136-145)
--- NOTE | 2024-11-13 06:19 | NUR ---
YESICA SUMMARY: PT IS DOING WELL AND RESTING IN BED. THEY ARE INTUBATED AND SEDATED ON PRECEDX GTT PER EMR ORDERS. PT ONLY RESPONDING TO PAINFUL STIMULI AND WILL OPEN EYES BUT NOT TRACKING OR FOLLOWING COMMANDS. PT HAD MULTIPLE COUGHING EPISODES THROUGHOUT THE NIGHT. COMBINATION OF SUCTIONING AND FENTANYL PUSHES PER EMR ORDERS HELPED WITH COUGHING. SPO2 >95%. BLOOD PRESSURE HAS BEEN STABLE, MAP>65 HR: 60'S. JONES CATHTER AND RECTAL TUBE IN PLACE AND DRAINING TO GRAVITY. LINES, CORDS, AND TUBES PLACED OUT OF REACH. CALL LIGHT PLACED WITHIN REACH.
--- NOTE | 2024-11-13 16:45 | NUR ---
SHIFT SUMMARY PT SEDATED IN BED AT TIME OF BEDSIDE REPORT. PT UNABLE TO FOLLOW COMMANDS OR TRACK MOVEMENT W/ EYES. MOVES ALL EXTREMITIES SPONTANEOUSLY AND WITHDRAWS WEAKLY FROM PAIN. NSR W/ OCCASIONAL PVCS, CAP REFILL <3 SEC, EDEMA IN BUE/BLE/UPPER LIP/LABIA. INTUBATED ON VENT ACVC 18/400/5/40%, ETT 23 AT TEETH. LUNGS SOUNDS ARE CLEAR W/ OCCASIONAL RHONCHI THAT CAN BE CLEARED W/ INLINE SUCTION. OGT IN PLACE, 63 AT TEETH, TF PIVOT1.5 AT GOAL OF 35ML/HR W/ Q6 250ML FLUSHES. BOWEL TONES ACTIVE AND ABD MILDLY FIRM TO PALPATION. RECTAL TUBE IN PLACE DRAINIING TO GRAVITY. JONES CATHETER IN PLACE AND DRAINING TO GRAVITY. SCATTERED ECCHYMOSIS T/O, SKIN BREAKDOWN/SCABS TO UPPER LIP/CHEEKS, LABIAL REDNESS ADN EDEMA NOTED. ACCESS: LUE TRIPLE LUMEN PICC GTTS: PRECEDEX AT 1 SAT WAS PERFORMED FROM 0800 TO 1200, PT WAS GRIMACING IN PAIN W/ UNCHANGED NEURO OTHERWISE. TACHYPNEIC ON VENT IN THE 30'S/40'S. PRN FENTANYL WAS NOT EFFECTIVE IN TREATING DISCOMFORT. SEDATION WAS RESUMED FOR PT COMFORT.
--- NOTE | 2024-11-13 21:01 | NUR ---
ASSUMPTION OF CARE: ASSUMED CARE AT START OF SHIFT (1899). PT IS DOING WELL AND RESTING IN BED THEY ARE INTUBATED AND SEDATEDON PRECEDEX GTT PER EMR ORDERS. PT IS OPENING EYES TO VOICE BUT NOT FOLLOWING COMMANDS. LUNG SOUNDS ARE CLEAR AND EQUAL BILATERALLY. VENT: ACVC 18/400/5/40% SPO2 >95%. SINUS RYTHM WITH SBP: 100-110'S MAP >65 HR: 60'S. IV: PICC LINE IN LUE. JONES CATHETER AND RECTAL TUBE IN PLACE AND DAINGING TO GRAVITY. OG TUBE IS CONNECTED TO CONTINUOUS TUBE FEED AT GOAL RATE. SKIN: EDAMETOUS, SCATTERED SKIN TEARS THAT ARE COVERED WITH MEPLIX. LIPS ARE SWOLLEN, CRACKED, AND WILL START OOZING BLOOD DURING ORAL CARE. LINES, CORDS, AND TUBE PLACED OUT OF REACH. CALLL LIGHT PLACED WITHIN REACH.
[2024-11-14] VITALS (53 sets, daily range): BP systolic 87–138; BP diastolic 44–85
[2024-11-14 04:40] LABS: BASOPHILS ABSOLUTE AUTO 0.06 K/mm3 (0.00-0.23); BASOPHILS PERCENT AUTO 1 % (0-2); EOSINOPHILS ABSOLUTE AUTO 0.27 K/mm3 (0.00-0.68); EOSINOPHILS PERCENT AUTO 3 % (0-6); Hematocrit 24.9 % (33.0-51.0); Hemoglobin 8.2 g/dL (11.5-16.0); IMMATURE GRAN ABSOLUTE AUTO 0.19 K/mm3 (0.00-0.10); IMMATURE GRAN PERCENT AUTO 2 % (0-1); LYMPHOCYTES ABSOLUTE AUTO 1.02 K/mm3 (0.84-5.20); LYMPHOCYTES PERCENT AUTO 11 % (21-46); MONOCYTES ABSOLUTE AUTO 1.49 K/mm3 (0.16-1.47); MONOCYTES PERCENT AUTO 16 % (4-13); Mean Corpuscular HGB Conc 32.9 g/dL (31.5-36.5); Mean Corpuscular Volume 106 fL (80-100); NEUTROPHILS ABSOLUTE AUTO 6.47 K/mm3 (1.96-9.15); NEUTROPHILS PERCENT AUTO 68 % (41-73); NRBC ABSOLUTE 0.00 K/mm3 (0.00-0.02); NRBC Auto 0.0 /100 WBC (0.0-0.2); Platelet Count 226 K/mm3 (150-400); RDW Coefficient Variation 19.9 % (11.7-14.2); RDW Standard Deviation 71.3 fL (35.1-46.3)
[2024-11-14 04:56] LABS: Anion Gap 10.0 mmol/L (3-11); Blood Urea Nitrogen 92.0 mg/dL (8-24); CO2, Blood 24.0 mmol/L (21-32); Calcium, Blood 8.8 mg/dL (8.5-10.1); Chloride, Blood 117.0 mmol/L (98-108); Creatinine, Blood 0.76 mg/dL (0.40-1.00); Glucose, Blood 119.0 mg/dL (70-99); Potassium, Blood 3.6 mmol/L (3.5-5.5); Sodium, Blood 147.0 mmol/L (136-145)
--- NOTE | 2024-11-14 06:20 | NUR ---
SHIFT SUMMARY: PT IS DOING WELL AND RESTING IN BED, INTUBATED AND SEDATED ON PRECEDEX GTT PER EMR ORDERS. NO ACUTE CHANGES THROUGHOUT THE SHIFT. PT HAD MULTIPLE COUGHING EPISODES THROUGHOUT THE NIGHT WHICH WAS RELIEVED BY SUCTIONING. SMALL AMOUNT OF THICK SECRETIONS NOTED WHEN SUCTIONING ET TUBE. VITAL SIGNS HAVE BEEN STABLE. PICC LINE IN LUE. RECTAL TUBE AND JONES CATHETER IN PLACE AND DRAINING TO GRAVITY. LINES, CORDS, AND TUBES PLACED OUT OF REACH. CALL LIGHT PLACED WITHIN REACH.
[2024-11-14] MEDS ORDERED: Furosemide 10 MG / ML 2ML Vial IV ONE (11:00)
[2024-11-14] MEDS ORDERED: Heparin Sodium,Porcine 5,000 UNIT/0.5 ML SDV SC SCH (16:00)
--- NOTE | 2024-11-14 17:25 | NUR ---
SHIFT SUMMARY PT SEDATED AT TIME OF BEDSIDE REPORT. PT UNABLE TO FOLLOW COMMANDS, TRACK W/ EYES. MOVES ALL EXTREMTIES WEAKLY SPONTANEOUSLY AND WITHDRAWS WEAKLY FROM PAIN. PT INTUBATED ON VENT ACVC 18/400/5/40%, ETT 7.5 23 AT TEETH. LUNGS SOUNDS CLEAR AND DIM AT BASE. FREQUENT INLINE AND ORAL SUCTIONING REQUIRED. NSR T/O SHIFT, MAPS>65, CAP REFILL <3 SEC, AND NOTED EDEMA IN ALL EXTREMITIES/UPPER LIP/LABIA. OGT IN PLACE 63 AT TEETH, TF PIVOT 1.5 RUNNING AT GOAL OF 35ML/HR, BOWEL TONES HYPERACTIVE. RECTAL TUBE IN PLACE AND DRAINING TO GRAVITY. TEMP JONES CATHETER IN PLACE AND DRAINING TO GRAVITY. SKIN ECCHYMOTIC T/O, REDNESS/BREAKDOWN IN LABIA AND PERIORAL AREA. WOUND CARE DONE PER ORDER. ACCESS: LUE TRIPLE LUMEN PICC GTTS: PRECEDEX 1 PT REMOVED FROM SEDATION FROM HOURS OF 7325-6477 FOR SAT. PT TOLERATED POORLY, CONSTANT COUGHING/GAGGING/ALARMING TO VENT AND TACHYPNEA W/ RESPIRATIONS IN 40'S. NEURO STATUS REMAINED THE SAME T/O SAT, SEDATION RESUMED FOR PT COMFORT.
[2024-11-14] MEDS ORDERED: NS 250 ML IV ONE (19:45)
--- NOTE | 2024-11-14 20:54 | NUR ---
ASSUMPTION OF CARE: ASSUMED CARE OF PT AT 1900. PT INTUBATED AND SEDATED ON PRECEDEX AT 1.0 MCG/KG/HR. PT RESPONDING TO PAINFUL STIMULI BUT NOT MAKING PURPOSEFUL MOVEMENTS. OPENS EYES ON OCCASION WITH GAZE TO THE RIGHT AT TIMES. PT FREQUENTLY COUGHING AND ALARMING THE VENTILATOR. FREQUENT SUCTIONING WITH MODERATE THICK SECRETIONS NOTED. PT MEDICATED WITH PRN FENTANYL. VENT SETTINGS AC/VC 18/400/5.0/50%. FIO2 INCREASED TO MAINTAIN SPO2 >90%. SPO2 CURRENTLY 96%. LUNGS CLEAR/DIM. CLASSROOM TEACHER IN PLACE, SR WITH HR 60'S. SBP SOFT WITH MAP <65 AT TIMES, CALL PLACED TO DR. BARRAGAN WITH AN ORDER TO GIVE A 250 ML BOLUS. BOLUS GIVEN MAP CURRENTLY 66. PICC TO JOSE PATENT AND INFUSING. TUBE FEED INFUSING THROUGH OGT AT 35 ML/HR. JONES PATENT AND DRAINING TO GRAVITY DARK YELLOW URINE. RECTAL TUBE DRAINING TO GRAVITY. BED LOCKED.
[2024-11-15] VITALS (93 sets, daily range): BP systolic 74–137; BP diastolic 36–67
[2024-11-15 04:25] LABS: BASOPHILS ABSOLUTE AUTO 0.08 K/mm3 (0.00-0.23); BASOPHILS PERCENT AUTO 1 % (0-2); EOSINOPHILS ABSOLUTE AUTO 0.40 K/mm3 (0.00-0.68); EOSINOPHILS PERCENT AUTO 3 % (0-6); Hematocrit 24.3 % (33.0-51.0); Hemoglobin 7.9 g/dL (11.5-16.0); IMMATURE GRAN ABSOLUTE AUTO 0.33 K/mm3 (0.00-0.10); IMMATURE GRAN PERCENT AUTO 2 % (0-1); LYMPHOCYTES ABSOLUTE AUTO 1.19 K/mm3 (0.84-5.20); LYMPHOCYTES PERCENT AUTO 8 % (21-46); MONOCYTES ABSOLUTE AUTO 2.24 K/mm3 (0.16-1.47); MONOCYTES PERCENT AUTO 15 % (4-13); Mean Corpuscular HGB Conc 32.5 g/dL (31.5-36.5); Mean Corpuscular Volume 106 fL (80-100); NEUTROPHILS ABSOLUTE AUTO 11.15 K/mm3 (1.96-9.15); NEUTROPHILS PERCENT AUTO 73 % (41-73); NRBC ABSOLUTE 0.00 K/mm3 (0.00-0.02); NRBC Auto 0.0 /100 WBC (0.0-0.2); Platelet Count 257 K/mm3 (150-400); RDW Coefficient Variation 20.3 % (11.7-14.2); RDW Standard Deviation 72.3 fL (35.1-46.3)
[2024-11-15 04:43] LABS: Alanine Aminotransfer (ALT/SGP 29.0 U/L (12-78); Albumin, Blood 1.3 g/dL (3.4-5.0); Albumin/Globulin Ratio 0.3 (0.8-1.8); Anion Gap 8.0 mmol/L (3-11); Aspartate Aminotrans (AST/SGOT 122.0 U/L (12-37); Bilirubin, Total 1.1 mg/dL (0.1-1.0); Blood Urea Nitrogen 102.0 mg/dL (8-24); CO2, Blood 24.0 mmol/L (21-32); Calcium, Blood 9.2 mg/dL (8.5-10.1); Chloride, Blood 116.0 mmol/L (98-108); Creatinine, Blood 0.81 mg/dL (0.40-1.00); Globulin, Blood 4.1 g/dL (2.2-4.0); Glucose, Blood 108.0 mg/dL (70-99); Potassium, Blood 3.4 mmol/L (3.5-5.5); Sodium, Blood 145.0 mmol/L (136-145); Total Protein, Blood 5.4 g/dL (6.4-8.2)
--- NOTE | 2024-11-15 05:48 | NUR ---
SHIFT SUMMARY: PT REMAINS INTUBATED AND SEDATED T/O THE SHIFT. VENT SETTINGS AC/VC 18/400/5/40%. SPO2 94-98%. LUNGS CLEAR/DIM. NEURO STATUS REMAINS UNCHANGED THIS SHIFT. GRIMACES TO PAINFUL STIMULI. MEDICATED WITH PRN FENTANYL. PRECEDEX AT 1 MCG/KG/HR. LEVOPHED INFUSING TO MAINTAIN MAP >65. SEE FLOWSHEET FOR DETAILS. PT IN SR WITH HR 50-60'S. PT FREQUENTLY COUGHING AND BITING ON ET TUBE. SUCTIONING MODERATE AMOUNT OF SECRETIONS THIS SHIFT. TUBE FEED OFF AT MIDNIGHT, HEPARIN HELD FOR POSSIBLE PROCEDURE THIS AM. LR INFUSING AT 75 ML/HR. KCL INFUSING FOR K OF 3.4 THIS AM. PICC TO JOSE REMAINS PATENT. JONES DRAINING DARK URINE TO GRAVITY. RECTAL TUBE DRAINING TO GRAVITY. PT RECEIVED BED BATH THIS SHIFT. BED LOCKED.
--- NOTE | 2024-11-15 12:14 | NUR ---
REASSESSMENT PT REMAINS INTUBATED AND ON PRECEDEX FOR SEDATION. SHE COUGHS AND FIGHTS THE VENTILATOR WITH MINIMAL STIMULATION. COUGHING UP THICK, WILSON SPUTUM FROM ETT AND ORAL SECRETIONS. DR. OBRIEN CAME BY THIS MORNING AND SPOKE WITH PT'S SO AND BROTHER. PLAN IS FOR TRACH THIS AFTERNOON AND BOTH FAMILY MEMBERS WERE AGREEABLE WITH PLAN. SR IN THE 60S, MAP IN THE 60S ON 2MCG/MIN OF LEVOPHED. TUBE FEEDS REMAIN ON HOLD FOR PROCEDURE. RECTAL TUBE WITH YELLOW BROWN OUTPUT. R HAND HAS 4+ EDEMA TODAY. KEEPING IT ELEVATED ON PILLOWS.
--- NOTE | 2024-11-15 15:44 | NUR ---
1543 TIME OUT 100 FENT. IV 1544: 50 MG OF ROCURONIUM IV VS: PULSE 62 , RR 18, 100%, BP 120/56 MAP73 1547: PRECEDEX AT 0.8 MCG / KG/ HR AND 5CC OF PROPOFOL = 50MG GIVEN 1548: PULSE 58 , RR 18, 100% SPO2, ENTITLE 23, 102/[address] OBRIEN AT NECK OF PATIENT AND DR NGUYEN AT HEAD OF BED WITH SCOPE, RT GANESH QUINTERO AT BEDSIDE ASSISTING. 1551: TRACH PLACED BY DR OBRIEN VENTILATOR ON TRACH. VS; PULSE 63 , RR 18, SPOW 100%, ENTITLE 20, BP 95/47 MAP 62. 1554: BOLUS LR 999ML/HR 1555: DR NGUYEN TO DO BRONCH NOW. 1558: MAP 58 PROPOFOL 10MCG/KG/MIN, LEVOPHED 4MCG/MIN, IV FLUID LSR DOWN TO 75ML/HR 1602: VS PULSE 62, RR 19, SPO2 100, ENTITLE 19, BP 118/60 MAP 76 END OF BRONCH 1605. BP 126/63 MAP 82, PULSE 57, RR 15, 100%, ENTTILE 21. VENT SETTING AC/VC 480 TV, RR 18, PEEP 5, 35%.
[2024-11-15] MEDS ORDERED: FentaNYL Citrate 50 MCG/ML 2 ML Injection IV ONE (16:15)
--- NOTE | 2024-11-15 17:52 | NUR ---
SHIFT SUMMARY PT HAD HER TRACH PLACED THIS AFTERNOON AND TOLERATED IT WELL. DR. NGYUEN GAVE INSTRUCTIONS TO KEEP PT SEDATED OVERNIGHT AND THEN START SATs IN THE MORNING. PT'S SO AWARE OF THIS. TRACH SITE HAS BEEN C/D/I, WITH MINIMAL BLEEDING. LUNGS CLEAR CURRENTLY. SB IN THE 50S, MAP 74. LEVO HAD TO BE TITRATED UP TO 4MCG/MIN DURING HER PROCEDURE, BUT WAS ABLE TO BE TITRATED BACK DOWN SHORTLY AFTER. TUBE FEEDS HAVE BEEN ON HOLD TODAY. DOBHOFF PLACED AND AWAITING RADIOLOGY READ, THEN WILL RESTART. JONES WITH YELLOW OUTPUT, RECTAL TUBE WITH BROWN/YELLOW OUTPUT. PT'S SO SPENT MOST OF THE DAY AT THE BEDSIDE.
--- NOTE | 2024-11-15 20:42 | NUR ---
ASSUMPTION OF CARE: ASSUMED CARE AT START OF SHIFT (1899). PT IS DOING WELL, THEY ARE SEDATED ON PRECEDEX AND PROPOFOL GTT PER EMR ORDERS AND RESTING IN BED. UNABLE TO COMPLETE ACCURATE NEURO CHECK AT THIS TIME DUE TO SEDATION ORDERS. LUNG SOUNDS ARE CLEAR AND EAULA BILATERALLY, PT IS ON VENTILATER VIA TRACH (6.0) SPO2 >90%. SINUS RYTHM SBP: 100-110'S MAP >65 HR: 40-50'S AND ON LEVOPHED GTT PER EMR ORDERS. IV : PICC LINE IN LUE. DOBHOF IN PLACE, 78CM AT NARES AND CONNECTED TO CONTINUOUS TUBE FEED. SKIN: SCATTERED SKIN TEARS THAT HAVE BEEN COVERED WITH MEPLIEX, LIPS ARE SLIGHTLY SWOLEN AND CRACKED WITH DRIED BLOOD. JONES CATHETER AND RECTAL TUBE IN PLACE AND DRAINING TO GRAVITY. LINES, CORDS, AND TUBES PLACED OUT OF REACH. CALL LIGHT PLACED WITHIN REACH.
[2024-11-16] VITALS (97 sets, daily range): BP systolic 83–138; BP diastolic 42–72
[2024-11-16 04:21] LABS: pH Blood Venous 7.43 (7.34-7.37)
[2024-11-16 04:29] LABS: Hematocrit 26.2 % (33.0-51.0); Hemoglobin 8.7 g/dL (11.5-16.0); Mean Corpuscular HGB Conc 33.2 g/dL (31.5-36.5); Mean Corpuscular Volume 104 fL (80-100); NRBC ABSOLUTE 0.05 K/mm3 (0.00-0.02); NRBC Auto 0.6 /100 WBC (0.0-0.2); Platelet Count 355 K/mm3 (150-400); RDW Coefficient Variation 20.2 % (11.7-14.2); RDW Standard Deviation 71.9 fL (35.1-46.3)
[2024-11-16 04:49] LABS: Alanine Aminotransfer (ALT/SGP 25.0 U/L (12-78); Albumin, Blood 1.3 g/dL (3.4-5.0); Albumin/Globulin Ratio 0.3 (0.8-1.8); Anion Gap 9.0 mmol/L (3-11); Aspartate Aminotrans (AST/SGOT 100.0 U/L (12-37); Bilirubin, Total 2.0 mg/dL (0.1-1.0); Blood Urea Nitrogen 98.0 mg/dL (8-24); CO2, Blood 22.0 mmol/L (21-32); Calcium, Blood 9.3 mg/dL (8.5-10.1); Chloride, Blood 117.0 mmol/L (98-108); Creatinine, Blood 0.86 mg/dL (0.40-1.00); Globulin, Blood 4.3 g/dL (2.2-4.0); Glucose, Blood 115.0 mg/dL (70-99); Magnesium, Blood 2.5 mg/dL (1.6-2.4); Phosphorus, Blood 4.2 mg/dL (2.5-4.9); Potassium, Blood 3.7 mmol/L (3.5-5.5); Sodium, Blood 144.0 mmol/L (136-145); Total Protein, Blood 5.6 g/dL (6.4-8.2)
[2024-11-16 05:10] LABS: BAND PERCENT MAN 7 % (0-8); BASOPHILS ABSOLUTE MAN 0.08 K/mm3 (0.00-0.23); BASOPHILS PERCENT MAN 1 % (0-2); EOSINOPHILS ABSOLUTE MAN 0.72 K/mm3 (0.00-0.68); EOSINOPHILS PERCENT MAN 9 % (0-6); LYMPHOCYTES ABSOLUTE MAN 0.80 K/mm3 (0.84-5.20); LYMPHOCYTES PERCENT MAN 10 % (21-46); MONOCYTES ABSOLUTE MAN 0.16 K/mm3 (0.16-1.47); MONOCYTES PERCENT MAN 2 % (4-13); MYELOCYTE ABSOLUTE MAN 0.16 K/mm3 (0.00-0.00); MYELOCYTE PERCENT MAN 2 % (0-0); NEUTROPHILS ABSOLUTE MAN 6.11 K/mm3 (1.96-9.15); SEG NEUTROPHILS PERCENT MAN 69 % (41-73)
--- NOTE | 2024-11-16 06:29 | NUR ---
SHIFT SUMMARY: PT IS DOING WELL, NO ACUTE CHANGES THROUGHOUT THE SHIFT. PT SEDATED WITH PROPOFOL AND PRECEDEX GTT PER EMR ORDERS. SINUS RYTHM WITH SBP: 100-110'S MAP >65 HR: 60'S. JONES CATHETER AND RECTAL TUBE IN PLACE AND DRAINING TO GRAVITY. LINES, CORDS, AND TUBES PLACED OUT OF REACH. CALL LIGHT PLACED WTHIN REACH.
--- NOTE | 2024-11-16 10:03 | NUR ---
AM NOTE: THIS RN ASSUMED CARE OF PT AT APPROX 0700, BEDSIDE REPORT FROM NOC RN. PT SEDATED W/ PROPOFOL GTT & PRECEDEX GTT AT START OF SHIFT. RASS -4. ALL SEDATION TITRATED OFF BY 0824. RASS REMAINS -4. PUPILS EQUAL & REACTIVE TO LIGHT, CORNEAL REFLEX INTACT BILATERALLY. WITHDRAWS TO PAINFUL STIMULI TO ALL EXTREMITIES. OCCASIONALLY OPENS EYES, UNABLE OT TRACK. UNABLE TO FOLLOW ANY COMMANDS. SPO2 >90% ON VENT, SETTINGS AT START OF SHIFT AC/VC 18/400/5/50%; SBT INITIATED AT 0910. RR UP TO 40'S DURING SBT, PO ATIVAN ADMINISTERED PER ORDERS FOR TACHYPNEA. TRACH SITE C/D/I. MODERATE ORAL SECRETIONS NOTED. LEVO GTT TITRATED TO MAINTAIN MAP >65, SEE FLOWSHEET FOR TITRATIONS. HR 60-80'S, SINUS RHYTHM ON MONITOR. CORE TEMP AT START OF SHIFT 94.5; VERIFIED W/ ORAL & AXILLARY TEMPS. WARM BLANKETS APPLIED, TEMP AT THIS TIME 96.3. RECTAL TUBE W/ LIQUID BROWN OUTPUT NOTED THIS AM. JONES CATH PATENT & DRAINING TO GRAVITY. TF INFUSING AT GOAL VIA DOBHOFF. PT'S SIGNIFICANT OTHER & BROTHER AT BEDSIDE THIS AM, UPDATED ON PLAN OF CARE BY THIS RN & DR. NGUYEN.
--- NOTE | 2024-11-16 10:53 | NUR ---
PALLIATIVE CARE VISIT: MADE SUPPORTIVE VISIT TO FAMILY, BROTHER SUNG AND S/O EMILE. PT CONTINUES TO BE NON RESPONSIVE DESPITE DECREASED SEDTION. IS CURRENTLY TACHYPNIC. DISCUSSED GOALS OF CARE WITH FAMILY. THEY WANT TO WAIT A COUPLE MORE DAYS BEFORE MAKING ANY DECISIONS ABOUT WITHDRAWING MECHANICAL VENTILATION BUT ARE AGREEABLE TO CHANGING CODE STATUS TO DNR AT THIS POINT IN TIME. THEY DO NOT WANT CPR DONE DUE TO THE RISK OF RIB FRACTURES. UPDATED PRIMARY RN AND NOTIFIED MD. DR. SIMPSON AGREEABLE TO CHANGE CODE STATUS TO DNR. UPDATED ORDER IN JUN. WILL COMPLETE A POLST WITH FAMILY.
--- NOTE | 2024-11-16 16:53 | NUR ---
Spiritual Care Visit. At a moment when there were no family at bedside, this rotary shear operator prayed for the Pt. This rotary shear operator has been with the Pt. and her SO since she first came to the ICU. Will remain available to the SO, the Pts. brother, and the Pt.
--- NOTE | 2024-11-16 17:35 | NUR ---
END OF SHIFT NOTE: PT REMAINS OFF SEDATION SINCE THIS AM, RASS -4. OCCASIONAL EYE OPENING & RESPONSE TO PAIN. UNABLE TO FOLLOW COMMANDS, TRACK W/ EYES. VERY MINIMAL MOVEMENT OF EXTREMITIES. VENT REMAINS ON SPONTANEOUS W/ PEEP 5 & FIO2 45%. RR UP TO 40-50'S AT TIMES, IMPROVEMENT W/ PO ATIVAN. FENTANYL X1 THIS SHIFT FOR PAIN. VSS. HR UP TO 110'S, SINUS TACH ON MONITOR. BP STABLE, MAP >65 W/ LEVOPHED GTT OFF. SPO2 >90% ON VENT, TRACH REMAINS C/D/I. PT NORMOTHERMIC AT THIS TIME. PICC TO JOSE SALINE LOCKED. JONES W/ YELLOW/INDERJIT URINE OUTPUT. RECTAL TUBE W/ LIQUID BROWN OUTPUT. PT W/ 1 EPISODE OF VOMITING THIS AFTERNOON. HOB ELEVATED AT TIME OF VOMITING EVENT, VOMIT SUCTIONED BY THIS RN. SPO2 >90% DURING EVENT. TF PLACED ON STANDBY FOR APPROX 3HRS, RESTARTED AT 15ML/HR TO ASSESS TOLERANCE. MOTORCYCLE TESTER & HOSPITALIST NOTIFIED. PLAN TO SLOWLY INCREASE TF RATE BACK TO GOAL.
--- NOTE | 2024-11-16 19:32 | NUR ---
ASSUMPTION OF CARE: ASSUMED CARE AT START OF SHIFT (1899). PT IS DOING WELL AND RESTING IN BED. PT HAS BEEN OFF SEDATION SINCE DAY SHIFT. PT IS ONLY RESPONSIVE TO PAINFUL STIMULI AND NOT FOLLOWING COMMANDS AT THIS TIME. PUPILS ARE EQUAL BUT SLUGGISH AND GAZED TO THE LEFT SIDE. LUNG SOUNDS ARE CLEAR AND EQUAL, INTUBATED VIA TRACH. SPO2 >95%. SINUS RYTHM WITH SBP: 120-130'S MAP >65 HR:110'S. IV: PICC LINE IN LUE. JONES CATHETER AND RECTAL TUBE IN PLACE AND DRAINING TO GRAVITY. LINES, CORDS, AND TUBES PLACED OUT OF REACH. CALL LIGHT PLACED WITHIN REACH.
[2024-11-17] VITALS (94 sets, daily range): BP systolic 120–166; BP diastolic 44–73
[2024-11-17 04:34] LABS: Hematocrit 26.9 % (33.0-51.0); Hemoglobin 8.8 g/dL (11.5-16.0); Mean Corpuscular HGB Conc 32.7 g/dL (31.5-36.5); Mean Corpuscular Volume 103 fL (80-100); NRBC ABSOLUTE 0.07 K/mm3 (0.00-0.02); NRBC Auto 0.9 /100 WBC (0.0-0.2); Platelet Count 274 K/mm3 (150-400); RDW Coefficient Variation 19.9 % (11.7-14.2); RDW Standard Deviation 72.4 fL (35.1-46.3)
[2024-11-17 04:55] LABS: Alanine Aminotransfer (ALT/SGP 29.0 U/L (12-78); Albumin, Blood 1.3 g/dL (3.4-5.0); Albumin/Globulin Ratio 0.3 (0.8-1.8); Anion Gap 10.0 mmol/L (3-11); Aspartate Aminotrans (AST/SGOT 110.0 U/L (12-37); Bilirubin, Total 1.4 mg/dL (0.1-1.0); Blood Urea Nitrogen 101.0 mg/dL (8-24); CO2, Blood 22.0 mmol/L (21-32); Calcium, Blood 9.6 mg/dL (8.5-10.1); Chloride, Blood 119.0 mmol/L (98-108); Creatinine, Blood 0.94 mg/dL (0.40-1.00); Globulin, Blood 4.2 g/dL (2.2-4.0); Glucose, Blood 117.0 mg/dL (70-99); Potassium, Blood 3.7 mmol/L (3.5-5.5); Sodium, Blood 147.0 mmol/L (136-145); Total Protein, Blood 5.5 g/dL (6.4-8.2)
[2024-11-17 04:58] LABS: BAND PERCENT MAN 8 % (0-8); BASOPHILS ABSOLUTE MAN 0.31 K/mm3 (0.00-0.23); BASOPHILS PERCENT MAN 4 % (0-2); EOSINOPHILS ABSOLUTE MAN 0.23 K/mm3 (0.00-0.68); EOSINOPHILS PERCENT MAN 3 % (0-6); LYMPHOCYTES ABSOLUTE MAN 1.19 K/mm3 (0.84-5.20); LYMPHOCYTES PERCENT MAN 15 % (21-46); MONOCYTES ABSOLUTE MAN 0.39 K/mm3 (0.16-1.47); MONOCYTES PERCENT MAN 5 % (4-13); NEUTROPHILS ABSOLUTE MAN 5.83 K/mm3 (1.96-9.15); SEG NEUTROPHILS PERCENT MAN 65 % (41-73)
--- NOTE | 2024-11-17 06:42 | NUR ---
SHIFT SUMMARY: PT IS DOING WELL AND RESTING IN BED. PT IS RESPONDS TO PAINFUL STIMULI AND NOT FOLLOWING COMMANDS AT THIS TIME. NO ACUTE CHANGES THROUGHOUT THE SHIFT. VENTED THROUGH THE TRACH WITH SETTINGS ACVC: 18/400/10/45%. SINUS RYTHM WITH SBP: 140'S MAP >65 HR 100'S. IV: PICC LINE IN LUE. JONES CATH AND RECTAL TUBE IN PLACE AND DRAINING TO GRAVITY. LINES, CORDS, AND TUBE PLACED OUT OF REACH. CALLL LIGHT PLACED WITHIN REACH.
[2024-11-17] MEDS ORDERED: Furosemide 10 MG / ML 2ML Vial IV SCH (10:00)
--- NOTE | 2024-11-17 17:32 | NUR ---
SHIFT SUMMARY PT WAS IN BED, NOT ALERT FOR BEDISDE REPORT. PT IS UNABLE TO FOLLOW COMMANDS, PUPILS PERRL, AND WITHDRAWS WEAKLY FROM PAIN. NSR T/O SHIFT, CAP REFILL<3 SEC, AND EDEMA IN ALL EXTREMETIES/GENERALIZED. BREATH SOUNDS CLEAR T/O JAMES, INTUBATED VIA TRACH ON VENT. 6.0 SHILEY TRACH, SUTURES IN PLACE. DRESSING CHANGED AND C/D/I. VENT SETTINGS ACVC 18/400/10/45%. PT TOLERATED SPONTANEOUS ON VENT W/ SETTINGS OF 12/10/45%. ABD FIRM TO PALPATION, BOWEL TONES HYPERACTIVE. RECTAL TUBE IN PLACE AND DRAINING TO GRAVITY. JONES CATHETER IN PLACE AND DRAINING TO GRAVITY. SKIN W/ SCATTERED BREAKDOWN AND ECCYHMOSIS. ACCESS: LUE TRIPLE LUMEN PICC
--- NOTE | 2024-11-17 20:50 | NUR ---
ASSUMPTION OF CARE: ASSUMED CARE AT START OF SHIFT (1899). PT IS DOING WELL, INTUBATED VIA TRACH AND RESTING IN BED. PT IS RESPONSIVE TO PAINFUL STIMULI AND NOT FOLLOWING COMMANDS AT THIS TIME. PT WILL SPONTANEOUSLY MOVE HANDS, OPEN EYES, AND ATTEMPT TO MOVE HEAD. LUNG SOUNDS ARE CLEAR AND EQUAL BILATERALLY, VENT SETTING: SPONTANEOUS- 12/10 40%. SPO2 >95%. SINUS RYTHM WITH SBP: 130-140'S MAP >65 HR: 100'S. IV: PICC LINE IN LUE. JONES CATHETER AND RECTAL TUBE IN PLACE AND DRAINGING TO GRAVITY. SKIN: ALL EXTREMITIES ARE EDAMETOUS AND RED. LINES, CORDS, AND TUBES PLACED OUT OF REACH. CALL LIGHT PLACED WITHIN REACH.
[2024-11-18] VITALS (56 sets, daily range): BP systolic 105–178; BP diastolic 47–81
[2024-11-18 05:11] LABS: BASOPHILS ABSOLUTE AUTO 0.07 K/mm3 (0.00-0.23); BASOPHILS PERCENT AUTO 1 % (0-2); EOSINOPHILS ABSOLUTE AUTO 0.30 K/mm3 (0.00-0.68); EOSINOPHILS PERCENT AUTO 3 % (0-6); Hematocrit 22.3 % (33.0-51.0); Hemoglobin 7.4 g/dL (11.5-16.0); IMMATURE GRAN ABSOLUTE AUTO 0.12 K/mm3 (0.00-0.10); IMMATURE GRAN PERCENT AUTO 1 % (0-1); LYMPHOCYTES ABSOLUTE AUTO 1.60 K/mm3 (0.84-5.20); LYMPHOCYTES PERCENT AUTO 17 % (21-46); MONOCYTES ABSOLUTE AUTO 1.98 K/mm3 (0.16-1.47); MONOCYTES PERCENT AUTO 21 % (4-13); Mean Corpuscular HGB Conc 33.2 g/dL (31.5-36.5); Mean Corpuscular Volume 102 fL (80-100); NEUTROPHILS ABSOLUTE AUTO 5.33 K/mm3 (1.96-9.15); NEUTROPHILS PERCENT AUTO 57 % (41-73); NRBC ABSOLUTE 0.02 K/mm3 (0.00-0.02); NRBC Auto 0.2 /100 WBC (0.0-0.2); Platelet Count 302 K/mm3 (150-400); RDW Coefficient Variation 19.7 % (11.7-14.2); RDW Standard Deviation 71.3 fL (35.1-46.3)
[2024-11-18 05:41] LABS: Alanine Aminotransfer (ALT/SGP 29.0 U/L (12-78); Albumin, Blood 1.4 g/dL (3.4-5.0); Albumin/Globulin Ratio 0.3 (0.8-1.8); Anion Gap 9.0 mmol/L (3-11); Aspartate Aminotrans (AST/SGOT 106.0 U/L (12-37); Bilirubin, Total 1.1 mg/dL (0.1-1.0); Blood Urea Nitrogen 95.0 mg/dL (8-24); CO2, Blood 25.0 mmol/L (21-32); Calcium, Blood 9.5 mg/dL (8.5-10.1); Chloride, Blood 119.0 mmol/L (98-108); Creatinine, Blood 0.87 mg/dL (0.40-1.00); Globulin, Blood 4.4 g/dL (2.2-4.0); Glucose, Blood 121.0 mg/dL (70-99); Magnesium, Blood 2.5 mg/dL (1.6-2.4); Phosphorus, Blood 4.0 mg/dL (2.5-4.9); Potassium, Blood 3.3 mmol/L (3.5-5.5); Sodium, Blood 150.0 mmol/L (136-145); Total Protein, Blood 5.8 g/dL (6.4-8.2)
--- NOTE | 2024-11-18 06:26 | NUR ---
SHIFT SUMMARY: PT IS DOING WELL AND RESTING IN BED. NO ACUTE CHANGES THROUGHOUT THE SHIFT. PT IS INTUBATED VIA TRACH. VENT SETTING: SPONTANEOUS / 40%. HAS BEEN PRODUCING LOTS OF THICK MUCUS IN THE LUNGS AND A LOT OF ORAL SECRETIONS WELL. VITAL SIGNS HAVE BEEN STABLE. PICC LINE IN LUE. JONES CATHETER AND RECTAL IN PLACE AND DRAINING TO GRAVITY. LINES, CORDS, AND TUBES PLACED OUT OF REACH. CALL LIGHT PLACED WITHIN REACH.
[2024-11-18] MEDS ORDERED: Potassium Chl 20MEQ/Water100ML 100 ML IV SCH (06:30)
[2024-11-18 07:17] LABS: Hematocrit 19.7 % (33.0-51.0); Hemoglobin 6.6 g/dL (11.5-16.0)
--- NOTE | 2024-11-18 08:00 | NUR ---
AM NOTE PT UNRESPONSIVE IN BED AT TIME OF BEDSIDE REPORT. PT UNABLE TO FOLLOW COMMANDS AND DOES NOT SHOW PURPOSEFUL MOVEMENT, WITHDRAWS WEAKLY FROM PAINFUL STIMULI. NSR, CAP REFILL <3 SEC, ADN EDEMA NOTED IN ALL EXTREMITIES/GENERALIZED. INTUBATED ON VENT VIA TRACH, SETTINGS ACVC 18/400/10/45%. BREATH SOUNDS CLEAR T/O JAMES. ABD DISTENDED AND SOFT TO PALPATION, BOWEL TONES HYPERACTIVE. RECTAL TUBE IN PLACE DRAINING TO GRAVITY. JONES CATHETER DRAINING TO GRAVITY. SKIN W/ SCATTERED ECCHYMOSIS/BREAKDOWN/SCABS. ACCESS: LUE TRIPLE LUMEN PICC
[2024-11-18 08:45] LABS: Source, Urine Foley catheter
[2024-11-18 08:48] LABS: Bilirubin, Urine Neg (Neg); Color, Urine Amber (P-Yellow); Glucose Qualitative, Urine Neg (Neg); Ketones, Urine Neg (Neg); Leukocyte Esterase, Urine 3+ (Neg); Protein, Urine 3+ (Neg); Specific Gravity, Urine 1.015 (1.003-1.022); Urobilinogen, Urine NORM (Normal)
[2024-11-18 08:54] LABS: Red Blood Cells, Urine 50-100 /hpf (0-2); White Blood Cells, Urine 50-100 /hpf (0-5)
[2024-11-18 08:56] LABS: Yeast/Fungi Urine Many /hpf
--- NOTE | 2024-11-18 12:42 | NUR ---
Spiritual Care Support Joined Palliative nurse Aracely in conversation of the Pts. current condition and decisions that the family needs to make with regard to withdrawing care. Seek to help answer the families questions and normalize the palliative care process. Pts. brother requested to meet with the providers before making the decision.
[2024-11-18] MEDS ORDERED: Morphine Sulfate 10 MG/ML 1MLSYR IV PRN (14:45)
[2024-11-18] MEDS ORDERED: Morphine Sulfate 20 MG/1ML 1 ML Oral Syringe SL PRN (14:45)
[2024-11-18] MEDS ORDERED: Haloperidol Lactate Inj. 5 MG/ML Injection IV PRN (14:45)
--- NOTE | 2024-11-18 14:54 | NUR ---
STATUS CHANGE PT'S S/O AND BROTHER DISCUSSED PLAN OF CARE AND PROGNOSIS W/ DR. THOMPSON AND PALLIATIVE CARE TEAM AT LENGTH. DECISION TO MOVE FORWARD W/ COMFORT CARE MEASURES WAS MADE. S/O AND BROTHER STEPPED OUT TO TAKE A BREAK AND MAKE PHONE CALLS TO FAMILY. COMFORT CARE ORDERS WERE PLACED THIS AFTERNOON AT FAMILY'S DISCRETION.
[2024-11-18] MEDS ORDERED: Atropine Sulfate 1% Opth Soln 2ML BTL SL PRN (15:25)
--- NOTE | 2024-11-18 15:29 | NUR ---
EXTUBATION PT EXTUBATED BY RESPIRATORY THERAPY TO TPIECE ON TRACH FOR COMFORT CARE MEASURES. FAMILY, SPIRITUAL CARE, PALLIATIVE CARE, PRIMARY RN, AND RT IN ROOM TO SUPPORT FAMILY. MEDICATION UTILIZED PER MAR FOR PATIENT COMFORT.
--- NOTE | 2024-11-18 16:28 | NUR ---
"Spiritual Care | Comfort Care | Extubation | EOL Education Pt. is being transition to comfort care. Pts. SO and brother decline to be present for the extubation and excuse themselves. Palliative Care Nurse, Aracely, Attending nurse Ingrid, and this senior test engineer remain with Pt. fo some time. Prayed for the Pt. and the family. Met with brothers in the [facility] waiting area. As they were being comforted, and EOL education is taking place, the Pts. brother chose [facility] for a home after the Pt. passes. Nurse and supervisor smoke control are notified."
--- NOTE | 2024-11-18 17:57 | NUR ---
SHIFT SUMMARY PT REMAINS IN BED, MEDICATED PER COMFORT CARE EMAR ORDERS. FAMILY HAS LEFT BEDSIDE AND IS REQUESTING TO BE CALLED AT TIME OF . FINAL DISCHARGE UPDATED W/ CONTACT NUMBER AND HOME PREFERENCE.
--- NOTE | 2024-11-18 18:32 | NUR ---
PALLIATIVE CARE VISIT: THIS MORNING SPOKE TO S/O EMILE ABOUT CONCERNS PT HEALTH CONTINUING TO DECLINE DUE TO REQUIRING BLOOD PRODUCTS DUE TO HGB OF 6.6, UNKNOWN CAUSE. PT CONTINUES TO BE NON RESPONSIVE AND HAVING TACHYPNIC BREATHING. EMILE AGREEABLE TO WITHDRAWING CARE AT THAT TIME. SPOKE TO BROTHER SUNG AT 1145 AND UPDATED HI WITH CONCERNS ALSO. HE SPOKE TO DR. THOMPSON TO HAVE HIS QUESTIONS ANSWERED AND ULTIMATELY ALSO DECIDED TO PLACE HIS SISTER ON COMFORT MEASURES. ONCE THEY WERE READY PT WAS REMOVED FROM MECHANICAL VENTILATION AND COMFORT MEDICATIONS GIVEN. PROVIDED MORAL AND EMOTIONAL SUPPORT TO FAMILY. PROVIDED LOCK OF HAIR AT EMILE'S REQUEST. FAMILYAPPEARED TO BE GRIEVING APPROPRIATELY. CHUTE OPERATOR NUBIA PRESENT. DISCUSSED HOME CHOICES AND FAMILY CHOSE [facility].
--- NOTE | 2024-11-19 03:43 | NUR ---
PT life partner "Timoteo" called at [phone] and informed of room change to medical 343.
--- NOTE | 2024-11-19 03:52 | NUR ---
PT WAS TRANSFERRED FROM ICU TO THE MEDICAL FLOOR TO RM#[id number]. PT WAS TRANSFERRED TO THE HOSPITAL BED WITH FOUR STAFF MEMBERS, USING A SLIDING SHEET. PT BROUGHT ALL HER BELONINGS WITH HER. COMFORT CARE MEASURES. ON RA. RR UNEVEN, LABORED>22/MIN. MEDICATED PER EMAR WITH MORPHINE IV 5MG. BED AT THE LOWEST POSITION, CALL LIGHT WITHIN REACH.
--- NOTE | 2024-11-19 05:40 | NUR ---
PT @3659. DR SCHILLING ON-CALL HOSPITALIST NOTIFIED. THIS ROAD CUTTER LVM TO EMILE. CHARGE NURSE NOTIFIED. EYES COVERED WITH ICE.
--- NOTE | 2024-11-19 10:14 | NUR ---
THIS NURSE SPOKE WITH EMILE MEZA AT 1013 ON 11/19/24 AND NOTIFIED HIM THAT PT PASSED. HE STATED THAT [facility] WAS PREFERENCE ON HOME. HE ALSO STATED THAT HE WILL BE IN TO SEE PT "ONE LAST TIME."
--- NOTE | 2024-11-19 17:43 | NUR ---
EYES BEING DONE IN ROOM NOW, FAMILY CAME AND SAW PATIENT, PATIENT TO GO TO [facility], ICE KEPT ON EYES THROUGH OUT THE DAY
== END 2024-11-19 18:20 | DRG 4 ==
LOC: ER 14:45 → MEDS 18:23 → ICUE 18:23 → MEDS 11-19 03:21 → ENPENDDIS 11-19 12:02 → MEDS 11-19 18:20
PROVIDERS: Emergency Medicine; Hospitalist; Internal Medicine; Internal Medicine Critical Care Medicine; Registered Nurse; Student in an Organized Health Care Education/Training Program; ADMIT Internal Medicine
PROC: 0T9B70Z Drainage of Bladder with Drainage Device, Via Natural or Artificial Opening (ICD-10-PCS; 2024-10-30)
PROC: 0DH67UZ Insertion of Feeding Device into Stomach, Via Natural or Artificial Opening (ICD-10-PCS; 2024-10-30)
PROC: 02HV33Z Insertion of Infusion Device into Superior Vena Cava, Percutaneous Approach (ICD-10-PCS; 2024-10-30)
PROC: 3E033XZ Introduction of Vasopressor into Peripheral Vein, Percutaneous Approach (ICD-10-PCS; 2024-10-30)
PROC: 3E03329 Introduction of Other Anti-infective into Peripheral Vein, Percutaneous Approach (ICD-10-PCS; 2024-11-01)
PROC: 0BH17EZ Insertion of Endotracheal Airway into Trachea, Via Natural or Artificial Opening (ICD-10-PCS; principal; 2024-11-03)
PROC: 0DH Gastrointestinal System, Insertion (ICD-10-PCS; 2024-11-15)
PROC: 0B9H8ZX Drainage of Lung Lingula, Via Natural or Artificial Opening Endoscopic, Diagnostic (ICD-10-PCS; 2024-11-15)
PROC: 0B113F4 Bypass Trachea to Cutaneous with Tracheostomy Device, Percutaneous Approach (ICD-10-PCS; 2024-11-15)
PROC: 5A1945Z Respiratory Ventilation, 24-96 Consecutive Hours (ICD-10-PCS; 2024-11-16)
DX: A41.01 Sepsis due to Methicillin susceptible Staphylococcus aureus (principal); G92.8 Other toxic encephalopathy; J96.01 Acute respiratory failure with hypoxia; J15.211 Pneumonia due to Methicillin susceptible Staphylococcus aureus; R65.21 Severe sepsis with septic shock; T67.01XA Heatstroke and sunstroke, initial encounter; E87.20 Acidosis, unspecified; N17.9 Acute kidney failure, unspecified; C22.0 Liver cell carcinoma; M62.82 Rhabdomyolysis; E72.20 Disorder of urea cycle metabolism, unspecified; E87.0 Hyperosmolality and hypernatremia; Z66 Do not resuscitate; E86.0 Dehydration; J44.9 Chronic obstructive pulmonary disease, unspecified; E87.6 Hypokalemia; I27.20 Pulmonary hypertension, unspecified; I25.10 Atherosclerotic heart disease of native coronary artery without angina pectoris; E80.6 Other disorders of bilirubin metabolism; E88.09 Other disorders of plasma-protein metabolism, not elsewhere classified; E83.42 Hypomagnesemia; D64.9 Anemia, unspecified; D69.6 Thrombocytopenia, unspecified; E83.39 Other disorders of phosphorus metabolism; K74.60 Unspecified cirrhosis of liver; Z88.0 Allergy status to penicillin; Z88.6 Allergy status to analgesic agent; Z79.2 Long term (current) use of antibiotics; Z79.899 Other long term (current) drug therapy; Z79.02 Long term (current) use of antithrombotics/antiplatelets; Z79.51 Long term (current) use of inhaled steroids; Z79.891 Long term (current) use of opiate analgesic
CPT/HCPCS: 0528U; 31500; 31720; 36415; 36430; 36556; 51702; 51798; 70450; 70496; 71045; 72125; 80047; 80048; 80053; 80069; 81001; 82140; 82248; 82330; 82550; 82607; 82728; 82746; 82803; 82947; 83010; 83540; 83550; 83605; 83615; 83735; 84100; 84145; 84443; 84484; 85014; 85018; 85025; 85027; 85045; 85060; 85379; 85384; 85610; 85730; 86850; 86900; 86901; 86923; 87040; 87070; 87077; 87086; 87147; 87186; 87205; 93005; 93010; 93306; 93971; 94002; 94003; 94640; 94664; 94762; 95819; 96365-59; 96366-59; 99285-25; A9270; C1751; J0612; J0690; J0696; J1644; J1938; J2250; J2270; J2371; J2470; J2704; J3010; J3373; J3475; J3480; J7030; J7040; J7050; J7060; J7120; P9016; P9047; Q9967